=== PATIENT | male | born 1945 | race Caucasian/White ===

== ENCOUNTER 2018-07-06 15:12 | Emergency (ER) | payer MEDICARE ==
[2018-07-06] MEDS ORDERED: Ketorolac Tromethamine 60 MG/2 ML VIAL ONE (17:08)
--- NOTE | 2018-07-06 17:34 | RAD ---
LEFT FEMUR TWO VIEWS: 07/06/18 HISTORY: Left leg injury. FINDINGS: prominent degenerative changes of the hip and knee. Femoral shaft is intact. No acute fracture, dislo cation or aggressive osseous erosions. Calcification over the arterial structures. IMPRESSION: No acute osseous abnormalities are demonstrated. Atherosclerosis. POS: RUSS
--- NOTE | 2018-07-06 17:41 | RAD ---
RADIOGRAPH LEFT KNEE 4 VIEWS: 07/06/18 HISTORY: 72-year-old male status post acute trauma to left knee. FINDINGS: Visible only on one of the oblique views, there appears to be an obliquely vertical linear lucency of the central portion of the proximal tibial epiphysis and metaphysis, with minimal step-off at the me dial aspect of the medial joint compartment. This is not visible on the other views. There is suprapa tellar hematoma seen on the lateral view. There is moderate joint space narrowing, sclerosis, and mod erate to large osteophytosis at the medial compartment. Lateral compartment has preserved joint space , and mild to moderate osteophytosis. Moderate osteophytosis at the patellofemoral compartment. IMPRESSION: 1. Questionable nondisplaced fracture of central aspect of proximal tibia, with possible intra-a rticular extension. 2. Hemarthrosis. 3. Moderate to severe osteoarthrosis of the medial compartment. 4. Moderate osteoarthrosis of the patellofemoral compartment. 5. Recommend noncontrast CT of the knee for further evaluation. POS: RUSS
== END 2018-07-06 16:57 | disposition home or self-care (01) ==
LOC: ERS 15:12
DX: M17.12 Unilateral primary osteoarthritis, left knee (principal); I10 Essential (primary) hypertension; F17.210 Nicotine dependence, cigarettes, uncomplicated
CPT/HCPCS: 96372; J1885

== ENCOUNTER 2018-11-07 20:35 | Emergency (ER) | payer MEDICARE ==
[2018-11-07] MEDS ORDERED: Bacitracin Zinc 1 Packet ONE (22:36)
[2018-11-07] MEDS ORDERED: Adacel (T-DAP) 0.5 ML SYRINGE ONE (22:58)
[2018-11-07] MEDS ORDERED: cloNIDine 0.1 MG TAB ONE (23:15)
== END 2018-11-07 23:36 | disposition home or self-care (01) ==
LOC: ERS 20:35
DX: S50.312A Abrasion of left elbow, initial encounter (principal); S80.212A Abrasion, left knee, initial encounter; I10 Essential (primary) hypertension; Z79.899 Other long term (current) drug therapy; Z79.82 Long term (current) use of aspirin; W18.09XA Striking against other object with subsequent fall, initial encounter
CPT/HCPCS: 90471; 90715

== ENCOUNTER 2019-01-19 06:02 | Inpatient (IN) | payer MEDICARE ==
[2019-01-19] MEDS ORDERED: Scopolamine 1.5 mg/72 hour Patch ONE (06:32)
[2019-01-19] MEDS ORDERED: Midazolam HCl 2 mg/2 ml Vial ONE (06:32)
[2019-01-19] MEDS ORDERED: Fentanyl 100 MCG/2 ML VIAL ONE ×3 (06:32→09:54)
[2019-01-19 06:48] LABS: #Basophils 0.1 thou/uL (0.0-0.2); #Eosinphils 0.2 thou/uL (0.0-0.7); #Lymphocytes 1.3 thou/uL (1.20-3.40); #Monocytes 0.8 thou/uL (0.11-0.59); #Neutrophils 5.7 thou/uL (1.40-6.50); %Basophils 0.8 % (0.0-1.0); %Lymphocytes 16.5 % (21.0-51.0); %Monocytes 9.7 % (0.0-10.0); Hemoglobin 14.3 g/dL (14.0-18.0); Mean Corpuscular HGB CONC 31.8 g/dL (32.0-36.0); Mean Corpuscular Hemoglobin 32.6 pg (27.0-31.0); Platelet Count 159 thou/uL (130-400); RBC Distribution Width 13.6 % (11.5-14.5)
[2019-01-19] MEDS ORDERED: Albuterol Sulfate 1.25 MG/3 ML NEB ONE (06:49)
[2019-01-19 06:56] LABS: INR-International Normal Ratio 1.1
[2019-01-19 06:57] LABS: PTT 29.8 SEC (22.9-36.1)
[2019-01-19] MEDS ORDERED: Tranexamic Acid 1,000 MG/10 ML VIAL ONE ×2 (07:03→09:42)
[2019-01-19] MEDS ORDERED: Sodium Chloride 0.9% 100 ML ONE (07:03)
[2019-01-19] MEDS ORDERED: Vancomycin HCl 1.5 GM in Sodium Chloride 0.9% 250 ML 300 ML IVPB SCH (07:15)
[2019-01-19 07:21] LABS: Anion Gap 15 mmol/L (10-20); BUN (Urea Nitrogen) 14 mg/dL (8.4-25.7); Calc. Creatinine Clearance 0 mL/min (70-130); Calcium 8.8 mg/dL (7.8-10.44); Carbon Dioxide 23 mmol/L (23-31); Chloride 110 mmol/L (98-107); Estimated GFR-MDRD Greater than 90; Glucose 108 mg/dL (83-110); Potassium 3.8 mmol/L (3.5-5.1); Sodium 144 mmol/L (136-145)
[2019-01-19] MEDS ORDERED: Bupivacaine HCl 0.5%/Epinephrine 1:200,000/PF 30 ml Vial ONE (07:35)
[2019-01-19] MEDS ORDERED: Ondansetron HCl/PF 4 MG/2 ML Vial IVP PRN (09:00)
[2019-01-19] MEDS ORDERED: Promethazine HCl 25 MG/ML VIAL IM PRN (09:00)
[2019-01-19] MEDS ORDERED: Promethazine HCl 25 MG/ML VIAL SLOW IVP PRN (09:00)
[2019-01-19] MEDS ORDERED: HYDROcodone/Acetaminophen 10/325 mg Tablet PO PRN (09:12)
[2019-01-19] MEDS ORDERED: Acetaminophen 500 MG TAB PO PRN (09:15)
--- NOTE | 2019-01-19 11:42 | OP ---
DATE OF PROCEDURE: 01/19/2019 PREOPERATIVE DIAGNOSIS: Failed left total shoulder. POSTOPERATIVE DIAGNOSIS: Failed left total shoulder. PROCEDURE: Left revision total shoulder arthroplasty. MANAGER SMALL BUSINESS: Gonzalo. BLOOD LOSS: 100. SPECIMEN: None. COMPLICATION: None. IMPLANTS USED: [employer] 29-mm revision baseplate with a 30 mm post, 35 and 29 locking screw, 7B long stem with a +6 high offset tray and a 9-mm poly. DESCRIPTION OF PROCEDURE: The patient was taken to the operating room for general anesthesia. He received Ancef and vancomycin preoperatively. With the patient in beach chair position, left arm was prepped and draped in usual sterile fashion, opened the old incision. This was secured down to the deltopectoral interval, which was open with some difficulty due to extensive scarring. I did develop the interval to develop the subdeltoid recess. Subscapularis was incised. Humeral head was dislocated. Careful exposure around the humeral head and removed the humeral implant. I broached the humeral implant to size 7 and this had good rotational stability. The glenoid was exposed. I removed the polyethylene glenoid, drilled the center hole. I tried to create some inferior tilt to the glenoid, reamed with the one-step reamer and inserted the baseplate with excellent bicortical fit. I placed a locking screw as described and placed a standard . Screw was tightened without difficulty. Trialed and used implants as described above. The permanent implants were packed into place. Irrigation was performed. Deltopectoral was closed with #2 Vicryl. Subcu closed with 2-0 Vicryl. Skin was closed with chino. Sterile dressings applied. Job ID: [id number]
[2019-01-19] MEDS ORDERED: Rocuronium Bromide 10 MG/ML (10ML VIAL) ONE (14:29)
[2019-01-19] MEDS ORDERED: Lidocaine 1% PF 5 ML VIAL ONE (14:29)
[2019-01-19] MEDS ORDERED: Ondansetron PF 4 MG/2 ML Vial ONE (14:29)
[2019-01-19] MEDS ORDERED: PROPOFOL 200 MG/20 ML VIAL ONE (14:29)
[2019-01-19] MEDS ORDERED: Ketorolac Tromethamine 30 MG/ML VIAL ONE (14:29)
[2019-01-19] MEDS ORDERED: Glycopyrrolate 0.2 MG/ML 5 ML SYRINGE ONE (14:29)
[2019-01-19 15:30] VITALS: BMI 22.1
[2019-01-19] MEDS: CEFAZOLIN 2 GM in Premix Bag 1 BAG IVPB SCH ×2 (16:39→23:16)
[2019-01-19] MEDS: Dextrose 5 %-0.45 % NaCl 1,000 ML IV SCH (16:57)
[2019-01-19] MEDS: Lisinopril 20 MG TAB PO SCH (20:48)
[2019-01-19] MEDS: Atenolol 50 MG TAB PO SCH (20:48)
[2019-01-19] MEDS: HYDROcodone/Acetaminophen 10/325 mg Tablet PO PRN (20:49)
[2019-01-20] MEDS: Dextrose 5 %-0.45 % NaCl 1,000 ML IV SCH ×3 (01:30→22:15)
--- NOTE | 2019-01-20 07:00 | EKG ---
Test Reason : PREOP Blood Pressure : / mmHG Vent. Rate : 056 BPM Atrial Rate : 056 BPM P-R Int : 148 ms QRS Dur : 142 ms QT Int : 494 ms P-R-T Axes : -23 -71 -29 degrees QTc Int : 476 ms Sinus bradycardia Right bundle branch block Left anterior fascicular block Bifascicular block Abnormal ECG When compared with ECG of 04-FEB-2016 23:12, Vent. rate has decreased BY 29 BPM T wave inversion more evident in Inferior leads Confirmed by FERNANDO DONG ([id number]) on 01/20/2019 6:59:44 AM Referred By: AGUEDA Confirmed By:FERNANDO DONG
[2019-01-20] MEDS: Atenolol 50 MG TAB PO SCH ×2 (09:25→20:43)
[2019-01-20] MEDS: Lisinopril 20 MG TAB PO SCH ×2 (09:25→20:44)
[2019-01-20] MEDS: Multivit, Therapeutic 1 TAB PO SCH (09:25)
[2019-01-20] MEDS: Enoxaparin Sodium 30 MG/0.3 ML SYRINGE SC SCH (09:26)
[2019-01-20] MEDS: Aspirin 81 mg Enteric Coated Tablet PO SCH (09:26)
[2019-01-20 20:16] LABS: #Eosinphils 0.1 thou/uL (0.0-0.7); #Lymphocytes 1.3 thou/uL (1.20-3.40); #Monocytes 1.5 thou/uL (0.11-0.59); #Neutrophils 11.3 thou/uL (1.40-6.50); %Basophils 0.2 % (0.0-1.0); %Eosinophils 0.5 % (0.0-10.0); %Monocytes 10.7 % (0.0-10.0); %Neutrophils 79.6 % (42.0-75.0); Hemoglobin 13.2 g/dL (14.0-18.0); Mean Corpuscular HGB CONC 32.4 g/dL (32.0-36.0); Mean Corpuscular Hemoglobin 33.6 pg (27.0-31.0); Mean Platelet Volume 9.5 fL (7.4-10.4); Platelet Count 147 thou/uL (130-400); RBC Distribution Width 13.5 % (11.5-14.5); Red Blood Cell (RBC) Count 3.92 mill/uL (4.70-6.10); White Blood Cell (WBC) Count 14.2 thou/uL (4.8-10.8)
[2019-01-20 20:38] LABS: Anion Gap 11 mmol/L (10-20); BUN (Urea Nitrogen) 14 mg/dL (8.4-25.7); Calc. Creatinine Clearance 92 mL/min (70-130); Calcium 8.9 mg/dL (7.8-10.44); Carbon Dioxide 27 mmol/L (23-31); Chloride 106 mmol/L (98-107); Estimated GFR-MDRD Greater than 90; Glucose 155 mg/dL (83-110); Potassium 3.5 mmol/L (3.5-5.1); Sodium 140 mmol/L (136-145)
[2019-01-20] MEDS: HYDROcodone/Acetaminophen 10/325 mg Tablet PO PRN (20:44)
[2019-01-21] MEDS: Dextrose 5 %-0.45 % NaCl 1,000 ML IV SCH
[2019-01-21 05:07] LABS: #Eosinphils 0.2 thou/uL (0.0-0.7); #Lymphocytes 1.6 thou/uL (1.20-3.40); #Monocytes 1.4 thou/uL (0.11-0.59); #Neutrophils 6.8 thou/uL (1.40-6.50); %Basophils 0.5 % (0.0-1.0); %Eosinophils 1.6 % (0.0-10.0); %Lymphocytes 16.2 % (21.0-51.0); %Monocytes 13.6 % (0.0-10.0); %Neutrophils 68.2 % (42.0-75.0); Hemoglobin 11.5 g/dL (14.0-18.0); Mean Corpuscular HGB CONC 32.7 g/dL (32.0-36.0); Mean Corpuscular Hemoglobin 33.9 pg (27.0-31.0); Mean Platelet Volume 9.6 fL (7.4-10.4); Platelet Count 126 thou/uL (130-400); RBC Distribution Width 13.4 % (11.5-14.5); Red Blood Cell (RBC) Count 3.39 mill/uL (4.70-6.10)
[2019-01-21 05:29] LABS: Anion Gap 10 mmol/L (10-20); BUN (Urea Nitrogen) 13 mg/dL (8.4-25.7); Calc. Creatinine Clearance 112 mL/min (70-130); Calcium 8.3 mg/dL (7.8-10.44); Carbon Dioxide 25 mmol/L (23-31); Chloride 108 mmol/L (98-107); Estimated GFR-MDRD Greater than 90; Glucose 115 mg/dL (83-110); Potassium 3.6 mmol/L (3.5-5.1); Sodium 139 mmol/L (136-145)
[2019-01-21] MEDS: Sodium Chloride 0.9% 1,000 ML IV SCH ×2 (06:18→18:23)
[2019-01-21] MEDS: Multivit, Therapeutic 1 TAB PO SCH (09:39)
[2019-01-21] MEDS: Lisinopril 20 MG TAB PO SCH ×2 (09:39→20:54)
[2019-01-21] MEDS: Aspirin 81 mg Enteric Coated Tablet PO SCH (09:39)
[2019-01-21] MEDS: Atenolol 50 MG TAB PO SCH ×2 (09:39→20:54)
[2019-01-21] MEDS: Enoxaparin Sodium 30 MG/0.3 ML SYRINGE SC SCH (09:39)
--- NOTE | 2019-01-21 10:00 | PDOC.PN ---
- Subjective Encounter Start Date: 01/21/19 Encounter Start Time: 08:40 -: old records requested/rev consulted for medical management this morning pt was doing OK. he has pain in left shoulder, no fever, no chest pain - Objective Resuscitation Status - Order Detail: 01/21/19 06:59 Resuscitation Status Routine Resuscitation Status: FULL: Full Resuscitation MAR Reviewed: Yes Vital Signs & Weight: Vital Signs (12 hours) Temp Pulse Resp BP BP Pulse Ox 01/21/19 09:39 59 L 150/73 H 01/21/19 07:12 98.0 F 59 L 18 150/73 H 93 L 01/21/19 04:00 98.1 F 60 20 134/75 93 L 01/21/19 00:00 98.3 F 55 L 20 123/67 92 L Weight Weight 163 lb 6.4 oz I&O: 01/20/19 01/21/19 01/22/19 06:59 06:59 06:59 Intake Total 920 2490 Output Total 900 Balance 920 1590 Result Diagrams: 01/21/19 04:37 01/21/19 04:37 EKG Reviewed by me: Yes (lahb, RBBB) Phys Exam - Physical Examination Constitutional: NAD HEENT: moist MMs, sclera anicteric Neck: no JVD, supple Respiratory: no wheezing, no rales, no rhonchi reduced air entry Cardiovascular: RRR, no significant murmur, no rub Gastrointestinal: soft, non-tender, no distention, positive bowel sounds right BKA Neurological: non-focal, normal sensation Lymphatic: no nodes Psychiatric: normal affect Skin: no rash, normal turgor Dx/Plan (1) Acute urinary retention Code(s): R33.8 - OTHER RETENTION OF URINE Status: Acute (2) Status post total shoulder arthroplasty Code(s): Z96.619 - PRESENCE OF UNSPECIFIED ARTIFICIAL SHOULDER JOINT Status: Acute Qualifiers: Laterality: left Qualified Code(s): Z96.612 - Presence of left artificial shoulder joint (3) Hypertension Code(s): I10 - ESSENTIAL (PRIMARY) HYPERTENSION Status: Chronic (4) Macrocytic anemia Code(s): D53.9 - NUTRITIONAL ANEMIA, UNSPECIFIED Status: Chronic - Plan cont current plan of care * home medication reconciled * pain control * will do voiding trial before discharge * medication reviewed as below * symptomatic treatment * add folic acid and vitamin B12. Review of Systems - Review of Systems ENT: negative: Ear Pain, Ear Discharge, Nose Pain, Nose Discharge, Nose Congestion, Mouth Pain, Mouth Swelling, Throat Pain, Throat Swelling, Other Respiratory: negative: Cough, Dry, Shortness of Breath, Hemoptysis, SOB with Excertion, Pleuritic Pain, Sputum, Wheezing Cardiovascular: negative: chest pain, palpitations, orthopnea, paroxysmal nocturnal dyspnea, edema, light headedness, other Gastrointestinal: negative: Nausea, Vomiting, Abdominal Pain, Diarrhea, Constipation, Melena, Hematochezia, Other Genitourinary: Retention. negative: Dysuria, Frequency, Incontinence, Hematuria , Other Musculoskeletal: Shoulder Pain. negative: Neck Pain, Arm Pain, Back Pain, Hand Pain, Leg Pain, Foot Pain, Other - Medications/Allergies Allergies/Adverse Reactions: Allergies Allergy/AdvReac Type Severity Reaction Status Date / Time adhesive Allergy Verified 01/19/19 15:23 iodine Allergy Verified 01/19/19 15:23 Penicillins Allergy Hives Verified 01/19/19 15:23 povidone-iodine Allergy Verified 01/19/19 15:23 [From Betadine] soap [From Betadine] Allergy Verified 01/19/19 15:23 Medications: Current Medications Acetaminophen (Tylenol) 1,000 mg PO Q4H PRN PRN Reason: Pain Hydrocodone Bitart/Acetaminophen ([place] 10/325) 1 tab PO Q4H PRN PRN Reason: Moderate Pain (4-6) Hydrocodone Bitart/Acetaminophen ([place] 10/325) 2 tab PO Q4H PRN PRN Reason: Severe Pain (7-10) Last Admin: 01/20/19 20:44 Dose: 2 tab Aspirin (Ecotrin) 81 mg PO DAILY [facility] Last Admin: 01/21/19 09:39 Dose: 81 mg Atenolol (Tenormin) 50 mg PO BID [facility] Last Admin: 01/21/19 09:39 Dose: 50 mg Enoxaparin Sodium (Lovenox) 30 mg SC 0900 [facility] Last Admin: 01/21/19 09:39 Dose: 30 mg Sodium Chloride (Normal Saline 0.9%) 1,000 mls @ 100 mls/hr IV .Q10H [facility] Stop: 01/21/19 18:00 Last Admin: 01/21/19 06:18 Dose: 1,000 mls Lisinopril (Zestril) 20 mg PO BID [facility] Last Admin: 01/21/19 09:39 Dose: 20 mg Multivitamins (Theragran) 1 tab PO DAILY [facility] Last Admin: 01/21/19 09:39 Dose: 1 tab Sodium Chloride (Flush - Normal Saline) 10 ml IVF PRN PRN PRN Reason: Saline Flush
[2019-01-21] MEDS ORDERED: Ondansetron PF 4 MG/2 ML Vial IVP PRN (10:01)
[2019-01-21] MEDS ORDERED: Loperamide HCl 2 MG CAP PO PRN (10:01)
[2019-01-21] MEDS ORDERED: Ondansetron ODT 4 MG TAB SL PRN (10:01)
[2019-01-21] MEDS ORDERED: Diabetic Tussin 200 MG/10 ML UDCUP PO PRN (10:01)
[2019-01-21] MEDS ORDERED: Eucerin (Mineral Oil/Petrolatum,White) 30 gm Jar TOP PRN (10:01)
[2019-01-21] MEDS ORDERED: Loratadine 10 MG TAB PO PRN (10:01)
[2019-01-21] MEDS ORDERED: Bisacodyl 5 MG TAB PO PRN (10:01)
[2019-01-21] MEDS ORDERED: hydrALAZINE 20 MG/ML VIAL SLOW IVP PRN (10:01)
[2019-01-21] MEDS ORDERED: Sodium Chloride 0.65% Nasal 44 ML BOT EA NARE PRN (10:01)
[2019-01-21] MEDS ORDERED: Cepastat Lozenges 1 LOZ PO PRN (10:01)
[2019-01-21] MEDS ORDERED: Senokot S 8.6-50 MG TAB PO PRN (10:01)
[2019-01-21] MEDS ORDERED: traMADol HCl 50 MG TAB PO PRN (12:09)
[2019-01-21] MEDS: Ibuprofen 600 MG TAB PO PRN ×2 (12:52→20:55)
[2019-01-21] MEDS: Zolpidem Tartrate 5 MG TAB PO SCH (20:55)
[2019-01-22 05:56] LABS: #Eosinphils 0.2 thou/uL (0.0-0.7); #Lymphocytes 1.1 thou/uL (1.20-3.40); #Monocytes 0.9 thou/uL (0.11-0.59); #Neutrophils 5.2 thou/uL (1.40-6.50); %Basophils 0.5 % (0.0-1.0); %Eosinophils 2.5 % (0.0-10.0); %Lymphocytes 15.2 % (21.0-51.0); %Monocytes 12.4 % (0.0-10.0); %Neutrophils 69.4 % (42.0-75.0); Mean Corpuscular HGB CONC 31.5 g/dL (32.0-36.0); Mean Corpuscular Hemoglobin 32.6 pg (27.0-31.0); Mean Platelet Volume 9.7 fL (7.4-10.4); Platelet Count 134 thou/uL (130-400); RBC Distribution Width 13.4 % (11.5-14.5); Red Blood Cell (RBC) Count 3.68 mill/uL (4.70-6.10); White Blood Cell (WBC) Count 7.4 thou/uL (4.8-10.8)
[2019-01-22 06:18] LABS: Anion Gap 11 mmol/L (10-20); BUN (Urea Nitrogen) 10 mg/dL (8.4-25.7); Calc. Creatinine Clearance 117 mL/min (70-130); Calcium 8.2 mg/dL (7.8-10.44); Carbon Dioxide 22 mmol/L (23-31); Chloride 111 mmol/L (98-107); Estimated GFR-MDRD Greater than 90; Glucose 105 mg/dL (83-110); Potassium 3.5 mmol/L (3.5-5.1); Sodium 140 mmol/L (136-145)
[2019-01-22] MEDS: Aspirin 81 mg Enteric Coated Tablet PO SCH (08:07)
[2019-01-22] MEDS: Multivit, Therapeutic 1 TAB PO SCH (08:07)
[2019-01-22] MEDS: Lisinopril 20 MG TAB PO SCH ×2 (08:07→20:25)
[2019-01-22] MEDS: Cyanocobalamin (Vitamin B-12) 1,000 MCG TAB PO SCH (08:07)
[2019-01-22] MEDS: Folic Acid 1 MG TAB PO SCH (08:08)
[2019-01-22] MEDS: Amlodipine 5 MG TAB PO SCH (08:08)
[2019-01-22] MEDS: Enoxaparin Sodium 30 MG/0.3 ML SYRINGE SC SCH (08:08)
[2019-01-22] MEDS: Tamsulosin HCl 0.4 MG CAP PO SCH (08:08)
[2019-01-22] MEDS: Atenolol 50 MG TAB PO SCH (08:20)
--- NOTE | 2019-01-22 09:03 | PDOC.PN ---
- Subjective Encounter Start Date: 01/22/19 Encounter Start Time: 07:00 pt's heart rate is low and he has hypertension, otherwise he is doing ok, no new problem Patient seen and examined. No new complaints. No overnight events - Objective Resuscitation Status - Order Detail: 01/21/19 06:59 Resuscitation Status Routine Resuscitation Status: FULL: Full Resuscitation MAR Reviewed: Yes Vital Signs & Weight: Vital Signs (12 hours) Temp Pulse Resp BP BP Pulse Ox 01/22/19 08:20 58 L 174/80 H 01/22/19 08:08 58 L 174/80 H 01/22/19 08:07 174/80 H 01/22/19 07:30 97.9 F 58 L 20 185/81 H 95 01/22/19 00:00 98.9 F 62 18 167/81 H 92 L Weight Weight 163 lb 6.4 oz I&O: 01/21/19 01/22/19 01/23/19 06:59 06:59 06:59 Intake Total 2490 2900 Output Total 900 1300 Balance 1590 1600 Result Diagrams: 01/22/19 05:30 01/22/19 05:30 Phys Exam - Physical Examination Constitutional: NAD HEENT: PERRLA, moist MMs, sclera anicteric Neck: no JVD, supple Respiratory: no wheezing, no rales, no rhonchi Cardiovascular: RRR, no significant murmur, no rub Gastrointestinal: soft, non-tender, no distention, positive bowel sounds Musculoskeletal: no edema, pulses present right BKA, left shoulder with dressing Neurological: non-focal Lymphatic: no nodes Psychiatric: normal affect Skin: no rash, normal turgor Dx/Plan (1) Acute urinary retention Code(s): R33.8 - OTHER RETENTION OF URINE Status: Acute (2) Status post total shoulder arthroplasty Code(s): Z96.619 - PRESENCE OF UNSPECIFIED ARTIFICIAL SHOULDER JOINT Status: Acute Qualifiers: Laterality: left Qualified Code(s): Z96.612 - Presence of left artificial shoulder joint (3) Hypertension Code(s): I10 - ESSENTIAL (PRIMARY) HYPERTENSION Status: Chronic (4) Macrocytic anemia Code(s): D53.9 - NUTRITIONAL ANEMIA, UNSPECIFIED Status: Chronic - Plan 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 Review of Systems - Review of Systems ENT: negative: Ear Pain, Ear Discharge, Nose Pain, Nose Discharge, Nose Congestion, Mouth Pain, Mouth Swelling, Throat Pain, Throat Swelling, Other Respiratory: negative: Cough, Dry, Shortness of Breath, Hemoptysis, SOB with Excertion, Pleuritic Pain, Sputum, Wheezing Cardiovascular: negative: chest pain, palpitations, orthopnea, paroxysmal nocturnal dyspnea, edema, light headedness, other Gastrointestinal: negative: Nausea, Vomiting, Abdominal Pain, Diarrhea, Constipation, Melena, Hematochezia, Other Genitourinary: negative: Dysuria, Frequency, Incontinence, Hematuria, Retention , Other Musculoskeletal: Shoulder Pain. negative: Neck Pain, Arm Pain, Back Pain, Hand Pain, Leg Pain, Foot Pain, Other Other: not reliable due to his level of cognitive status - Medications/Allergies Allergies/Adverse Reactions: Allergies Allergy/AdvReac Type Severity Reaction Status Date / Time adhesive Allergy Verified 01/19/19 15:23 iodine Allergy Verified 01/19/19 15:23 Penicillins Allergy Hives Verified 01/19/19 15:23 povidone-iodine Allergy Verified 01/19/19 15:23 [From Betadine] soap [From Betadine] Allergy Verified 01/19/19 15:23 Medications: Current Medications Acetaminophen (Tylenol) 1,000 mg PO Q4H PRN PRN Reason: Pain Albuterol/Ipratropium (Duoneb) 3 ml NEB [id number] PRN PRN Reason: SOB &/or Wheezing Amlodipine Besylate (Norvasc) 5 mg PO DAILY [facility] Last Admin: 01/22/19 08:08 Dose: 5 mg Aspirin (Ecotrin) 81 mg PO DAILY [facility] Last Admin: 01/22/19 08:07 Dose: 81 mg Atenolol (Tenormin) 50 mg PO DAILY [facility] Bisacodyl (Dulcolax) 10 mg PO DAILYPRN PRN PRN Reason: Constipation Cyanocobalamin (Vitamin B-12) 1,000 mcg PO DAILY [facility] Last Admin: 01/22/19 08:07 Dose: 1,000 mcg Enoxaparin Sodium (Lovenox) 30 mg SC 0900 [facility] Last Admin: 01/22/19 08:08 Dose: 30 mg Folic Acid (Folvite) 1 mg PO DAILY [facility] Last Admin: 01/22/19 08:08 Dose: 1 mg Guaifenesin (Robitussin Sf) 200 mg PO Q4H PRN PRN Reason: Cough Hydralazine HCl (Apresoline) 10 mg SLOW IVP Q4H PRN PRN Reason: SBP > 180 and HR < 70 Ibuprofen (Motrin) 600 mg PO Q6H PRN PRN Reason: Pain Last Admin: 01/21/19 20:55 Dose: 600 mg Lisinopril (Zestril) 20 mg PO BID [facility] Last Admin: 01/22/19 08:07 Dose: 20 mg Loperamide HCl (Imodium) 2 mg PO PRN PRN PRN Reason: Diarrhea/Loose Stools Loratadine (Claritin) 10 mg PO DAILYPRN PRN PRN Reason: Sinus Symptoms Mineral Oil/White Petrolatum (Eucerin Cream) 0 gm TOP BIDPRN PRN PRN Reason: Dry Skin Multivitamins (Theragran) 1 tab PO DAILY [facility] Last Admin: 01/22/19 08:07 Dose: 1 tab Ondansetron HCl (Zofran Odt) 4 mg SL Q6H PRN PRN Reason: Nausea/Vomiting Ondansetron HCl (Zofran) 4 mg IVP Q6H PRN PRN Reason: Nausea/Vomiting Senna/Docusate Sodium (Senokot S) 2 tab PO BID PRN PRN Reason: Constipation Sodium Chloride (Flush - Normal Saline) 10 ml IVF PRN PRN PRN Reason: Saline Flush Sodium Chloride ([place] Nasal [place] 0.65%) 0 ml EA NARE QIDPRN PRN PRN Reason: Nasal Congestion Tamsulosin HCl (Flomax) 0.4 mg PO DAILY [facility] Last Admin: 01/22/19 08:08 Dose: 0.4 mg Throat Lozenges (Cepastat Lozenges) 1 meg PO Q2H PRN PRN Reason: Sore Throat Tramadol HCl (Ultram) 50 mg PO Q4H PRN PRN Reason: Pain 4-6 Zolpidem Tartrate (Ambien) 5 mg PO [facility] Stop: 01/24/19 23:00 Last Admin: 01/21/19 20:55 Dose: 5 mg
[2019-01-22] MEDS: Calcium Carbonate 500 MG ChewTAB PO PRN ×2 (17:31→22:48)
[2019-01-22] MEDS: Zolpidem Tartrate 5 MG TAB PO SCH (20:29)
[2019-01-23] MEDS: Lisinopril 20 MG TAB PO SCH (08:33)
[2019-01-23] MEDS: Folic Acid 1 MG TAB PO SCH (08:34)
[2019-01-23] MEDS: Tamsulosin HCl 0.4 MG CAP PO SCH (08:34)
[2019-01-23] MEDS: Cyanocobalamin (Vitamin B-12) 1,000 MCG TAB PO SCH (08:34)
[2019-01-23] MEDS: Enoxaparin Sodium 30 MG/0.3 ML SYRINGE SC SCH (08:34)
[2019-01-23] MEDS: Amlodipine 5 MG TAB PO SCH (08:34)
[2019-01-23] MEDS: Aspirin 81 mg Enteric Coated Tablet PO SCH (08:34)
[2019-01-23] MEDS: Multivit, Therapeutic 1 TAB PO SCH (08:34)
[2019-01-23] MEDS ORDERED: Atenolol 50 MG TAB PO SCH (09:00)
--- NOTE | 2019-01-23 10:21 | PDOC.PN ---
- Subjective Encounter Start Date: 01/23/19 Encounter Start Time: 08:00 Patient seen and examined. No new complaints. No overnight events - Objective Resuscitation Status - Order Detail: 01/21/19 06:59 Resuscitation Status Routine Resuscitation Status: FULL: Full Resuscitation MAR Reviewed: Yes Vital Signs & Weight: Vital Signs (12 hours) Temp Pulse Resp BP Pulse Ox 01/23/19 07:15 98.5 F 107 H 18 153/80 H 94 L 01/23/19 04:20 98.7 F 79 20 173/79 H 94 L 01/23/19 00:00 98.9 F 79 20 173/81 H 94 L Weight Weight 163 lb 6.4 oz I&O: 01/22/19 01/23/19 01/24/19 06:59 06:59 06:59 Intake Total 2900 1530 Output Total 1300 1000 Balance 1600 530 Result Diagrams: 01/22/19 05:30 01/22/19 05:30 Phys Exam - Physical Examination Constitutional: NAD HEENT: PERRLA, moist MMs, sclera anicteric Neck: no JVD, supple Respiratory: no wheezing, no rales, no rhonchi Cardiovascular: RRR, no significant murmur, no rub Gastrointestinal: soft, non-tender, no distention, positive bowel sounds right BKA Neurological: non-focal, normal sensation Lymphatic: no nodes Psychiatric: normal affect, A&O x 3 Skin: no rash, normal turgor Dx/Plan (1) Acute urinary retention Code(s): R33.8 - OTHER RETENTION OF URINE Status: Acute (2) Status post total shoulder arthroplasty Code(s): Z96.619 - PRESENCE OF UNSPECIFIED ARTIFICIAL SHOULDER JOINT Status: Acute Qualifiers: Laterality: left Qualified Code(s): Z96.612 - Presence of left artificial shoulder joint (3) Hypertension Code(s): I10 - ESSENTIAL (PRIMARY) HYPERTENSION Status: Chronic (4) Macrocytic anemia Code(s): D53.9 - NUTRITIONAL ANEMIA, UNSPECIFIED Status: Chronic - 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 Review of Systems - Review of Systems ENT: negative: Ear Pain, Ear Discharge, Nose Pain, Nose Discharge, Nose Congestion, Mouth Pain, Mouth Swelling, Throat Pain, Throat Swelling, Other Respiratory: negative: Cough, Dry, Shortness of Breath, Hemoptysis, SOB with Excertion, Pleuritic Pain, Sputum, Wheezing Cardiovascular: negative: chest pain, palpitations, orthopnea, paroxysmal nocturnal dyspnea, edema, light headedness, other Gastrointestinal: negative: Nausea, Vomiting, Abdominal Pain, Diarrhea, Constipation, Melena, Hematochezia, Other Genitourinary: negative: Dysuria, Frequency, Incontinence, Hematuria, Retention , Other Musculoskeletal: negative: Neck Pain, Shoulder Pain, Arm Pain, Back Pain, Hand Pain, Leg Pain, Foot Pain, Other - Medications/Allergies Allergies/Adverse Reactions: Allergies Allergy/AdvReac Type Severity Reaction Status Date / Time adhesive Allergy Verified 01/19/19 15:23 iodine Allergy Verified 01/19/19 15:23 Penicillins Allergy Hives Verified 01/19/19 15:23 povidone-iodine Allergy Verified 01/19/19 15:23 [From Betadine] soap [From Betadine] Allergy Verified 01/19/19 15:23 Medications: Current Medications Acetaminophen (Tylenol) 1,000 mg PO Q4H PRN PRN Reason: Pain Albuterol/Ipratropium (Duoneb) 3 ml NEB [id number] PRN PRN Reason: SOB &/or Wheezing Amlodipine Besylate (Norvasc) 5 mg PO DAILY [facility] Last Admin: 01/23/19 08:34 Dose: 5 mg Aspirin (Ecotrin) 81 mg PO DAILY [facility] Last Admin: 01/23/19 08:34 Dose: 81 mg Atenolol (Tenormin) 50 mg PO DAILY [facility] Last Admin: 01/23/19 08:34 Dose: 50 mg Bisacodyl (Dulcolax) 10 mg PO DAILYPRN PRN PRN Reason: Constipation Calcium Carbonate (Tums) 500 mg PO Q6H PRN PRN Reason: .INDIGESTION Last Admin: 01/22/19 22:48 Dose: 500 mg Cyanocobalamin (Vitamin B-12) 1,000 mcg PO DAILY [facility] Last Admin: 01/23/19 08:34 Dose: 1,000 mcg Enoxaparin Sodium (Lovenox) 30 mg SC 0900 [facility] Last Admin: 01/23/19 08:34 Dose: 30 mg Folic Acid (Folvite) 1 mg PO DAILY [facility] Last Admin: 01/23/19 08:34 Dose: 1 mg Guaifenesin (Robitussin Sf) 200 mg PO Q4H PRN PRN Reason: Cough Hydralazine HCl (Apresoline) 10 mg SLOW IVP Q4H PRN PRN Reason: SBP > 180 and HR < 70 Ibuprofen (Motrin) 600 mg PO Q6H PRN PRN Reason: Pain Last Admin: 01/21/19 20:55 Dose: 600 mg Lisinopril (Zestril) 20 mg PO BID [facility] Last Admin: 01/23/19 08:33 Dose: 20 mg Loperamide HCl (Imodium) 2 mg PO PRN PRN PRN Reason: Diarrhea/Loose Stools Loratadine (Claritin) 10 mg PO DAILYPRN PRN PRN Reason: Sinus Symptoms Mineral Oil/White Petrolatum (Eucerin Cream) 0 gm TOP BIDPRN PRN PRN Reason: Dry Skin Multivitamins (Theragran) 1 tab PO DAILY [facility] Last Admin: 01/23/19 08:34 Dose: 1 tab Ondansetron HCl (Zofran Odt) 4 mg SL Q6H PRN PRN Reason: Nausea/Vomiting Ondansetron HCl (Zofran) 4 mg IVP Q6H PRN PRN Reason: Nausea/Vomiting Last Admin: 01/23/19 04:23 Dose: 4 mg Senna/Docusate Sodium (Senokot S) 2 tab PO BID PRN PRN Reason: Constipation Sodium Chloride (Flush - Normal Saline) 10 ml IVF PRN PRN PRN Reason: Saline Flush Sodium Chloride ([place] Nasal [place] 0.65%) 0 ml EA NARE QIDPRN PRN PRN Reason: Nasal Congestion Tamsulosin HCl (Flomax) 0.4 mg PO DAILY [facility] Last Admin: 01/23/19 08:34 Dose: 0.4 mg Throat Lozenges (Cepastat Lozenges) 1 meg PO Q2H PRN PRN Reason: Sore Throat Tramadol HCl (Ultram) 50 mg PO Q4H PRN PRN Reason: Pain 4-6 Zolpidem Tartrate (Ambien) 5 mg PO [facility] Stop: 01/24/19 23:00 Last Admin: 01/22/19 20:29 Dose: 5 mg
[2019-01-23 12:01] VITALS: BP 168/86; TEMP 98.4
--- NOTE | 2019-01-24 09:29 | DIS ---
DATE OF ADMISSION: 01/19/2019 DATE OF DISCHARGE: 01/23/2019 PRIMARY CARE PHYSICIAN: Judy Yousif, nurse practitioner. DISCHARGE DISPOSITION: Senior Care Unit. PRIMARY DISCHARGE DIAGNOSES: 1. Status post total shoulder arthroplasty. 2. Acute urinary retention due to benign enlargement of prostate. SECONDARY DISCHARGE DIAGNOSES: Macrocytic anemia, hypertension, right below-knee amputation, and history of alcoholic cirrhosis. PRIMARY PROCEDURE/OPERATION: Left revision total shoulder arthroplasty. SIGNIFICANT LABORATORY DATA: WBC 7.4, hemoglobin 12.0, platelet 134. INR 1.1. Sodium 140 and creatinine 0.57. DISCHARGE MEDICATIONS: 1. Tylenol 1 g q.6 hourly p.r.n. 2. Aspirin 81 mg daily. 3. Atenolol 50 mg b.i.d. 4. Lisinopril 20 mg b.i.d. 5. Multivitamin 1 tablet p.o. daily. 6. Flomax 0.4 mg p.o. daily. 7. Tramadol 50 mg q.4 hourly p.r.n. CONTRAINDICATION: None. CODE STATUS: Full code. INPATIENT [facility]GAL: Dr. Pena was primary. [facility] Team was consulted for medical management. TEST RESULT PENDING ON DISCHARGE: None. ALLERGIES: PENICILLIN AND IODINE. DISCHARGE PLAN: Posthospital, the patient will follow up with Dr. Pena on February 08, 2019 at 2:15 p.m. The patient will follow up make appointment with Dr. Wilson and primary care physician. HOSPITAL COURSE: A 73-year-old male, who was admitted by Dr. Pena for shoulder replacement, which was done on January 19, 2019. After surgery, [facility] was consulted for medical management. While in the hospital, his hospital course was complicated by acute urinary retention, which we suspected from benign enlargement of prostate. Flomax was initiated. While in hospital, we continued all his home medication. Because of his physical deconditioning, the patient required placement. With help of telephonic nurse case manager, placement was arranged. The patient did not have any successful voiding trial before discharge and that is why he required Goldman catheter in. He will follow up with Urology as an outpatient basis. The patient was seen and examined on the day of discharge. Please see my progress note from that day. Job ID: [id number]
== END 2019-01-23 14:51 | DRG 483 ==
LOC: SURG A 06:02 → SJJU 13:48 → SURG A 01-21 18:10
PROVIDERS: ADMIT Orthopaedic Surgery; ATTEND Orthopaedic Surgery
PROC: 0RRK0JZ Replacement of Left Shoulder Joint with Synthetic Substitute, Open Approach (ICD-10-PCS; principal; 2019-01-19)
PROC: 0RPK0JZ Removal of Synthetic Substitute from Left Shoulder Joint, Open Approach (ICD-10-PCS; 2019-01-19)
DX: T84.111A Breakdown (mechanical) of internal fixation device of left humerus, initial encounter (principal); Y83.8 Other surgical procedures as the cause of abnormal reaction of the patient, or of later complication, without mention of misadventure at the time of the procedure; N40.1 Benign prostatic hyperplasia with lower urinary tract symptoms; R33.8 Other retention of urine; I10 Essential (primary) hypertension; D53.9 Nutritional anemia, unspecified; Z96.612 Presence of left artificial shoulder joint; Z89.611 Acquired absence of right leg above knee; Z88.0 Allergy status to penicillin; Z88.8 Allergy status to other drugs, medicaments and biological substances; Z87.19 Personal history of other diseases of the digestive system
CPT/HCPCS: 36415; 80048; 85025; 85610; 85730; 93005; 93010; C1713; J0131; J0670; J1650; J1885; J2001; J2250; J2405; J2704; J3010; J3370; J7050

== ENCOUNTER 2019-01-23 23:09 | Inpatient (IN) | payer MEDICARE ==
[~2019-01-23 23:09] MED LIST: ISOVUE-370 76%-LOCM 1 ML ONE
[2019-01-23] MEDS ORDERED: methylPREDNISolone Sod Succ/PF 125 MG/2 ML VIAL ONE (23:48)
[2019-01-23] MEDS ORDERED: diphenhydrAMINE 50 MG/ML VIAL ONE (23:48)
[2019-01-23 23:50] LABS: #Lymphocytes 0.9 thou/uL (1.20-3.40); #Monocytes 1.4 thou/uL (0.11-0.59); #Neutrophils 11.6 thou/uL (1.40-6.50); %Basophils 0.3 % (0.0-1.0); %Eosinophils 0.1 % (0.0-10.0); %Lymphocytes 6.1 % (21.0-51.0); %Monocytes 10.1 % (0.0-10.0); %Neutrophils 83.4 % (42.0-75.0); Hemoglobin 12.8 g/dL (14.0-18.0); Mean Corpuscular HGB CONC 32.1 g/dL (32.0-36.0); Mean Corpuscular Hemoglobin 32.8 pg (27.0-31.0); Platelet Count 200 thou/uL (130-400); RBC Distribution Width 13.2 % (11.5-14.5); Red Blood Cell (RBC) Count 3.91 mill/uL (4.70-6.10); White Blood Cell (WBC) Count 13.9 thou/uL (4.8-10.8)
[2019-01-23 23:53] LABS: Actual Bicarbonate (HCO3a) 23.2 mEq/L (22-28); Analyzer IN Cardio ER; Base Excess (BEa) -1.1 mEq/L (-2.0 to +3.0); CO2 Tension 37.6 mmHg (35.0-45.0); Calcium, Ionized 1.22 mmol/L (1.12-1.30); Carboxyhemoglobin (COHb) 1.1 gm% (0.0-3.0); Hemoglobin (Hb) 12.8 g/dL (14.0-18.0); O2 Tension (PaO2) 74.6 mmHg (> 70.0); Potassium - ABG Lab 3.63 mmol/L (3.70-5.30); pH, Arterial 7.41 (7.35-7.45)
[2019-01-23 23:57] LABS: INR-International Normal Ratio 1.2; PTT 31.2 SEC (22.9-36.1); Prothrombin Time 14.9 SEC (12.0-14.7)
[2019-01-24 00:08] LABS: Bilirubin Small (Negative); Blood, Urine Large (Negative); Clarity CLOUDY (Clear); Glucose, Urine (Dipstick) Negative (Negative); Leukocyte Moderate (Negative); Nitrite Negative (Negative); Protein, Urine (Dipstick) 100 mg/dL (Neg-Trace); Specific Gravity, Urine 1.026 (1.002-1.036); pH, Urine 6.5 (5.0-9.0)
[2019-01-24 00:09] LABS: Bacteria/HPF None Seen HPF (None Seen); Pathc Cast-AUWi Flag 1.01 (0-2.49)
[2019-01-24 00:10] LABS: ALT (SGPT) 37 U/L (8-55); AST (SGOT) 46 U/L (5-34); Albumin 2.8 g/dL (3.4-4.8); Alkaline Phosphatase 392 U/L (40-150); Anion Gap 14 mmol/L (10-20); BUN (Urea Nitrogen) 19 mg/dL (8.4-25.7); Bilirubin, Total 1.8 mg/dL (0.2-1.2); Calc. Creatinine Clearance 0 mL/min (70-130); Carbon Dioxide 24 mmol/L (23-31); Chloride 106 mmol/L (98-107); Estimated GFR-MDRD Greater than 90; Globulin 2.2 g/dL (2.4-3.5); Glucose 127 mg/dL (83-110); Lipase 12 U/L (8-78); Magnesium 1.7 mg/dL (1.6-2.6); Potassium 4.2 mmol/L (3.5-5.1); Sodium 140 mmol/L (136-145)
[2019-01-24 00:11] LABS: Yeast-AUWi Flag 55.2 (0-25.0)
[2019-01-24 00:24] LABS: Amphetamine Not Detected (NotDetected); Barbiturates Screen Not Detected (NotDetected); Benzodiazepine Screen Not Detected (NotDetected); Cocaine Metabolite Screen Not Detected (NotDetected); Medtox Control Line Valid? VALID (VALID); Medtox Reader # READER 4; Methadone Not Detected (NotDetected); Methamphetamine Not Detected (NotDetected); Opiate Screen Detected (NotDetected); Oxycodone Screen Not Detected (NotDetected); Phencyclidine (PCP) Not Detected (NotDetected); THC/Cannabinoid Screen Not Detected (NotDetected); Tricyclic Screen Not Detected (NotDetected)
[2019-01-24 00:27] LABS: Crystals/HPF RARE CA OXALATE HPF (Negative)
[2019-01-24 00:28] LABS: Renal Epithelial None Seen HPF (0-3); Transitional Epithelial NONE SEEN HPF (0-3); Yeast-All Forms None Seen HPF (None Seen)
[2019-01-24 00:37] LABS: Puncture Site RRA
[2019-01-24] MEDS ORDERED: Octreotide Acetate 50 MCG/ML AMP ONE (01:10)
[2019-01-24] MEDS ORDERED: Pantoprazole 40 MG VIAL ONE (01:10)
[2019-01-24] MEDS ORDERED: cefTRIAXone\\ROCEPHIN 1 GM VIAL ONE (01:11)
[2019-01-24] MEDS ORDERED: Naloxone HCl 0.4 mg/ml Vial ONE (01:15)
--- NOTE | 2019-01-24 01:24 | PDOC.FPRHP ---
- History of Present Illness Chief Complaint: found down History of Present Illness: 73 yo NH patient brought in by EMS after being found down. Due to AMS patient history provided by patient is limited. Per [facility] nurse patient had been hallucinating and more agitated for past couple of days. Today was found down with vomit on face, not in respiratory distress. Unsure how long he had been down for. Pt was recently discharged for left shoulder surgery. Patient denies drug use or recent alcohol use. He denies feeling SOB. In ED initial GCS 14, hypoxic at 85% on RA and started on NRB. Imaging showed small subsegmental PE in right upper lobe. Head imaging showed Posterior fossa with artifact vs. acute bleed. Also had hematemesis episode and was started on octreotide gtt and protonix due due to PMH significant for chronic alcohol abuse and imaging showing cirrhosis. He was given 1g rocephin. GI and neurosurgery were constuled with rx for repeat CT head in AM and plan for upper EGD. - Allergies/Adverse Reactions Allergies Allergy/AdvReac Type Severity Reaction Status Date / Time adhesive Allergy Verified 01/24/19 03:21 iodine Allergy Verified 01/24/19 03:21 Penicillins Allergy Hives Verified 01/24/19 03:21 povidone-iodine Allergy Verified 01/24/19 03:21 [From Betadine] soap [From Betadine] Allergy Verified 01/24/19 03:21 - Home Medications Medication Instructions Recorded Confirmed Type Acetaminophen [Pain Relief] 1,000 mg PO Q4HR PRN 01/18/19 01/24/19 History Aspirin [Aspir-Low] 81 mg PO DAILY 01/18/19 01/24/19 History Atenolol 50 mg PO BID 01/18/19 01/24/19 History Lisinopril 20 mg PO BID 01/18/19 01/24/19 History Multivitamin [Multi-Vitamin Daily] 1 tab PO DAILY 01/18/19 01/24/19 History Tamsulosin HCl [Flomax] 0.4 mg PO DAILY cap 01/23/19 01/24/19 Rx traMADol HCl [Ultram] 50 mg PO Q4H PRN tab 01/23/19 01/24/19 Rx - History PMHx: HTN, BPH PSHx: Right AKA, appendecotmy, left shoulder surgery FHx: n/c Social:1/2 pack a month, social drinking, denies drug use - Review of Systems ROS unobtainable: due to mental status (limited due to mental status) - Vital signs BP: 141/85 HR: 80 RR: 17 Tmax: 98 Pox: 93% on [face mask] Wt: [85kg] - Physical Exam -Constitutional: disheveled, ungroomed, agitated, A&O x2, GCS 15 HEENT: normocephalic and atraumatic, EOMI, conjunctiva clear Neck: supple, trachea midline Chest: no lesions Heart: RRR, normal S1/S2, no murmurs/rubs/gallops Lungs: good air movement -Lungs: wheezing diffusely -Abdomen: distended, non tender, mass in R side of abdomen -Musculoskeletal: R AKA left shoulder wound from surgical site, bandaged Neurological: no focal deficit Skin: no rash/lesions FMR H&P: Results - Labs Result Diagrams: 01/24/19 03:43 01/24/19 03:43 Lab results: WBC 13.9 thou/uL (4.8-10.8) H 01/23/19 23:39 Hgb 12.8 g/dL (14.0-18.0) L 01/23/19 23:39 Hct 40.0 % (42.0-52.0) L 01/23/19 23:39 MCV 102.0 fL (78.0-98.0) H 01/23/19 23:39 Plt Count 200 thou/uL (130-400) 01/23/19 23:39 Neutrophils % 83.4 % (42.0-75.0) H 01/23/19 23:39 ABG pH 7.41 (7.35-7.45) 01/23/19 23:46 ABG pCO2 37.6 mmHg (35.0-45.0) 01/23/19 23:46 ABG pO2 74.6 mmHg (> 70.0) H 01/23/19 23:46 Sodium 140 mmol/L (136-145) 01/23/19 23:38 Potassium 4.2 mmol/L (3.5-5.1) 01/23/19 23:38 Chloride 106 mmol/L (98-107) 01/23/19 23:38 Carbon Dioxide 24 mmol/L (23-31) 01/23/19 23:38 BUN 19 mg/dL (8.4-25.7) 01/23/19 23:38 Creatinine 0.65 mg/dL (0.7-1.3) L 01/23/19 23:38 Glucose 127 mg/dL (83-110) H 01/23/19 23:38 Lactic Acid 2.8 mmol/L (0.5-2.2) H 01/24/19 00:05 Calcium 9.0 mg/dL (7.8-10.44) 01/23/19 23:38 Total Bilirubin 1.8 mg/dL (0.2-1.2) H 01/23/19 23:38 AST 46 U/L (5-34) H 01/23/19 23:38 ALT 37 U/L (8-55) 01/23/19 23:38 Alkaline Phosphatase 392 U/L (40-150) H 01/23/19 23:38 B-Natriuretic Peptide 339.6 pg/mL (0-100) H 01/23/19 23:38 Serum Total Protein 5.0 g/dL (5.8-8.1) L 01/23/19 23:38 Albumin 2.8 g/dL (3.4-4.8) L 01/23/19 23:38 Lipase 12 U/L (8-78) 01/23/19 23:38 Urine Ketones Trace mg/dL (Negative) H 01/23/19 23:54 Urine Blood Large (Negative) H 01/23/19 23:54 Urine Nitrite Negative (Negative) 01/23/19 23:54 Ur Leukocyte Esterase Moderate (Negative) H 01/23/19 23:54 Urine RBC 7-10 HPF (0-3) H 01/23/19 23:54 Urine WBC 11-20 HPF (0-3) H 01/23/19 23:54 Ur Squamous Epith Cells 4-6 HPF (0-3) H 01/23/19 23:54 Urine Bacteria None Seen HPF (None Seen) 01/23/19 23:54 FMR H&P: A/P - Problem List (1) Acute respiratory failure with hypoxia Current Visit: Yes Status: Acute Code(s): J96.01 - ACUTE RESPIRATORY FAILURE WITH HYPOXIA (2) Pulmonary embolism Current Visit: Yes Status: Acute Code(s): I26.99 - OTHER PULMONARY EMBOLISM WITHOUT ACUTE COR PULMONALE (3) Dvt femoral (deep venous thrombosis) Current Visit: Yes Status: Acute Code(s): I82.419 - ACUTE EMBOLISM AND THROMBOSIS OF UNSPECIFIED FEMORAL VEIN (4) Encephalopathy acute Current Visit: Yes Status: Acute Code(s): G93.40 - ENCEPHALOPATHY, UNSPECIFIED (5) Upper GI bleed Current Visit: Yes Status: Acute Code(s): K92.2 - GASTROINTESTINAL HEMORRHAGE, UNSPECIFIED (6) Cirrhosis Current Visit: Yes Status: Acute Code(s): K74.60 - UNSPECIFIED CIRRHOSIS OF LIVER (7) Alcohol abuse Current Visit: Yes Status: Acute Code(s): F10.10 - ALCOHOL ABUSE, UNCOMPLICATED (8) UTI (urinary tract infection) Current Visit: Yes Status: Acute - Plan #Acute hypoxic respiratory failure -2/2 to opioid overdose vs. PE -85% on RA in ED -UDS positive for opiates -s/p naloxone in ED with improvement in oxygenation on non-rebreather -GCS 15, no intubation needed at this point -continue resp. support with NRB #Active upper GI bleed -hematemesis episode in ED -esophgeal variceal bleed vs. esophagitis vs. gen[place] tear -hemodynamically stable, Hb at 12 -GI consulted, plan for scope in AM -NPO, octreotide gtt, protonix BID -NG tube suction if continue vomiting, zofran -recheck H/H with AM CBC #Encephalopathy, metabolic vs. hypoxic -ddx: hypoxia, hepatic encephalopathy, opioid overdose, alcohol intoxication -pending ammonia #RLL subsegmental PE/Right femoral DVT -suspected underlying hepatic malignancy (CT showing masses on liver) in conjunction with recent shoulder surgery -anticoagulation contraindicated due to #2 -consult CV surg in AM for possibility of IVC filter #Suspected intracranial bleed -CT head read shows small amt of acute extra-axial blood along tentorium cerebelli -GCS 14 on admision, 15 now -Neuro exam difficult to perform due to compliance, but benign -neurosurg consulted, plan for repeat CT brain in AM -neuro checks #UTI -UA: mod LE -s/p rocephin -pending urine culture #Leukocytosis -13.9, no bands, afebrile -s/p rocephin -pending procal & blood cultures, will hold on further abx until procal returns -source consideration: UTI vs. wound vs. stress reaction vs. PE/DVT #Hx of alcohol abuse (suspected) -ASE protocol dispo:>2 midnights Discussed w/ Dr. Islas FMR H&P: Upper Level - Pertinent history Pt unable to provide history. Reportedly found down from presumed fall at [facility]. - Pertinent findings Pt vomiting dark emesis in room. - Plan Date/Time: 01/24/19 4624 I, Adán Johsnon, have evaluated this patient and agree with findings/plan as outlined by sports intern resident. Pertinent changes/additions are listed here. 1. Acute Encephalopathy - Likely 2/2 tramadol overdose vs other opiod as pt improved with Narcan. Also consider hypoxia/hypercapnia as he was having desaturations that have improved with O2. 2. Acute Hypoxic respiratory failure. Likely 2/[address], but did have wheezes as well. S/p 1 Duoneb in ED which we will shhedule respiratory status improving with Narcan. ABG obtained and will order repeat. No intubation indicated at this time as he is improving, but will continue to monitor. PE also likely contributing. 3. Subsegmental PE - New onset. RF of likely malignancy and post operative immobility. Acute hemorrhaging so will hold anticoagulants. 4. Acute Cerebral Hemorrhage - vs artifact. Neurosurgery notified in ED and will see him in AM. Will order f/u CT and appreciate neurosurgery recommendations. Hold all anticoagulants. H/H q4hr 5. Acute GI Bleed - Likely 2/[address] GI consulted in ED and reportedly plans to see him in ED. Will place on PPI gtt and NGT as needed. Trend H/H. NPO anticipate EGD in AM. 6. S/p Reconstructive shoulder surgery - On 01/19/19 and since been at inpatient facility. No acute issues. 7. Liver Mass - Likely malignant per CT as he also had lung nodules. Will need to f/u with biopsy once stable. 8. Ascites - This is presumed 2/2 liver cirrhosis and possibly cancer. Order hepatitis panel. Will need to be started on medications for liver failure once stable. Addendum - Attending - Attending Attestation Date/Time: 01/24/19 2329 I personally evaluated the patient and discussed the management with Dr. Paula on 01/24/2019 @0130 I agree with the History, Examination, Assessment and Plan documented above with any addition or exceptions noted below- 73 yo NH patient brought in by EMS after being found down. Due to AMS patient history provided by patient is limited. Per [facility] nurse patient had been hallucinating and more agitated for past couple of days. Today was found down with vomit and blood on face, not in respiratory distress. Unsure how long he had been down for. Pt was recently discharged for left shoulder surgery. PMH/PSH/All/Meds/SH reviewed and agree with resident's documentation. Afebrile P77 BP151/70 RR15 95% Exam repeated by me and agree with resident's findings. Labs: WBC=13.9, H/H=12.8/40.0, Xjb=144 , Na= 140, K=4.6, Yb=762, CO2=24, BUN/Cr=19/0.65, AST=46, ALT=32, Alk qctz=494, lactic acid=2.8, UDS (+) opiates, ABG 7.41/38/74/23, D-dimer=5.04, PT/INR=14.9/ 1.2 CT C-spine negative CT brain- slight asymmetry of left tentorium cerbelli can't exclude small amount of extr-axial blood CTA chest - distal subsegmental filling defect in RLL; multiple low attenuation hepatic lesions suspicious for metastases; large volume ascites Venogram- partially occlusive thrombosis of proximal, mid, distal right femoral vein A/P: 1) AMS- most likely multifactorial- will check ammonia to evaluate for hepatic encephalopathy; mentation appears improved after narcan and oxygen. Continue oxygen and wean as tolerated. 2) Possible subdural- neurosurgery consulted from ER; plan to repeat CT in AM 3) Possible GI bleed- h/o of possible hematemesis at [place]- monitor H/H; GI consulted; Continue protonix. 4) Right DVT and PE- continue supportive care; unable to anticoagulate due to possible subdural and possible GI bleed. May need [place] filter if unable to start anticoagulate. 5) Hepatic lesions- will need further imaging to evaluate. Review of prior scans showed a right renal mass seen in 2016 suspicious for malignancy.
[2019-01-24] MEDS ORDERED: Octreotide Acetate 1,250 MCG in Sodium Chloride 0.9% 250 ML 250 ML IVPB SCH (01:45)
[2019-01-24] MEDS ORDERED: Ondansetron ODT 4 MG TAB SL PRN (03:18)
[2019-01-24] MEDS ORDERED: Ondansetron PF 4 MG/2 ML Vial IVP PRN (03:18)
[2019-01-24 04:11] LABS: Lactic Acid 1.9 mmol/L (0.5-2.2)
[2019-01-24 04:24] LABS: ALT (SGPT) 32 U/L (8-55); AST (SGOT) 42 U/L (5-34); Albumin 2.7 g/dL (3.4-4.8); Alkaline Phosphatase 352 U/L (40-150); Anion Gap 12 mmol/L (10-20); BUN (Urea Nitrogen) 18 mg/dL (8.4-25.7); Bilirubin, Total 1.8 mg/dL (0.2-1.2); Calc. Creatinine Clearance 123 mL/min (70-130); Calcium 8.9 mg/dL (7.8-10.44); Carbon Dioxide 26 mmol/L (23-31); Chloride 106 mmol/L (98-107); Estimated GFR-MDRD Greater than 90; Globulin 2.2 g/dL (2.4-3.5); Glucose 148 mg/dL (83-110); Potassium 3.8 mmol/L (3.5-5.1); Protein, Total 4.9 g/dL (5.8-8.1); Sodium 140 mmol/L (136-145)
[2019-01-24 04:32] LABS: HBSAB Concentration 0.88 mIU/mL; HBSAg Index 0.22 S/CO (0-0.99); Hep B Surf AB Non-Reactive (NonReactive); Hep B Surf Ag Non-Reactive S/CO (NonReactive); Hep C IgG Ab Non-Reactive (NonReactive); Hep C Index 0.07 S/CO (0-0.79)
[2019-01-24 05:02] LABS: Band 2 % (5-11); Hemoglobin 11.9 g/dL (14.0-18.0); Hypochromia SLIGHT = 6-15 cells (100X) (0-5/hpf); Lymphocytes 3 % (21-51); MDiff Complete? YES; Macrocytosis SLIGHT = 6-15 cells (100X) (0-5/hpf); Mean Corpuscular HGB CONC 32.5 g/dL (32.0-36.0); Mean Corpuscular Hemoglobin 33.4 pg (27.0-31.0); Mean Platelet Volume 8.9 fL (7.4-10.4); Monocytes 1 % (0-10); Neutrophil 94 % (42-75); Platelet Count 174 thou/uL (130-400); Platelet Morphology Comment Appears Adequate; RBC Distribution Width 13.2 % (11.5-14.5); Red Blood Cell (RBC) Count 3.55 mill/uL (4.70-6.10); White Blood Cell (WBC) Count 12.6 thou/uL (4.8-10.8)
[2019-01-24] MEDS: Lactated Ringer's 1,000 ML IV SCH ×3 (05:13→18:10)
[2019-01-24] MEDS ORDERED: hydrALAZINE 20 MG/ML VIAL SLOW IVP PRN (06:22)
--- NOTE | 2019-01-24 07:00 | RAD ---
SINGLE VIEW CHEST: HISTORY: Fall at [facility] with head trauma and vomiting. COMPARISON: 02/07/2016 FINDINGS: Single view of the chest shows a normal sized cardiomediastinal silhouette. There is no evidence of consolidation, mass, or pleural effusion. The patient is status post recent left shoulder arthroplas ty. IMPRESSION: No evidence of acute cardiopulmonary disease. POS: C
[2019-01-24] MEDS ORDERED: Prevnar 13-Val Conj/PF 0.5 ML SYRINGE IM ONE (09:00)
--- NOTE | 2019-01-24 09:19 | ULT ---
PRELIMINARY REPORT/[facility]/EMERGENTY AFTER-HOURS PROCEDURE Addendum created by Luis Miguel Nickerson MD on 01/24/2019 2:54 AM Central Time ([place]) Findings discu ssed with JOSLYN AVILES MD at time of interpretation. Initial Report created on 01/24/2019 2:51 AM Central Time ([place]) US Duplex Bilateral Lower Extremity Veins EXAM DATE/TIME: 01/24/2019 2:02 AM CLINICAL HISTORY: 73 years old, male; Pain; Leg, upper; Bilateral; Prior surgery; Surgery date: 6+ months; Surgery type : RT leg amputated below RT knee TECHNIQUE: Real-time duplex ultrasound of the Bilateral Lower Extremities with 2-D russo scale, color Doppler los w and spectral waveform analysis. Complete exam focused on the bilateral lower extremity veins. COMPARISON: No relevant prior studies available. FINDINGS: Right deep veins: There is partially occlusive thrombosis of the proximal, mid, and distal right femo ral vein. Right common femoral vein is patent. Right superficial veins: Saphenofemoral junction is patent without thrombus. Right calf/foot arteries: Right lower leg amputation. Left deep veins: Unremarkable. The common femoral, femoral, proximal profunda femoral and popliteal v eins are patent without thrombus. Normal Doppler waveforms. Normal compressibility and/or augmentation response. Left superficial veins: Saphenofemoral junction is patent without thrombus. Soft tissues: Superficial edema. IMPRESSION: 1. There is partially occlusive thrombosis of the proximal, mid, and distal right femoral vein. 2. No DVT in the left lower extremity. 3. Superficial edema. Thank you for allowing us to participate in the care of your patient. Dictated and Authenticated by: Luis Miguel Nickerson MD 01/24/2019 2:51 AM Central Time ([place]) FINAL REPORT BILATERAL LOWER EXTREMITY VENOUS DOPPLER ULTRASOUND: Date: 01/24/19 HISTORY: Bilateral leg pain. Surgery 6 months ago. FINDINGS/IMPRESSION: Multiple longitudinal and transverse images of the right and left lower extremity venous systems are obtained using a multihertz linear array transducer. Real-time, color flow, and spectral waveform Dop pler analysis Demonstrates areas of echogenicity seen in the right superficial femoral vein, compatible with likely old clot which has secondarily recanalized. This is seen in the right proximal mid and distal superf icial femoral vein. The right popliteal vein is patent. No evidence of left lower extremity venous thrombosis seen. I agree with the preliminary report given by [facility]. POS: RUSS
--- NOTE | 2019-01-24 09:38 | CT ---
PRELIMINARY REPORT/[facility]/EMERGENTY AFTER-HOURS PROCEDURE CT Angiography Chest With Contrast EXAM DATE/TIME: 01/24/2019 12:24 AM CLINICAL HISTORY: 73 years old, male; Signs and symptoms; Dyspnea and shortness of breath; Patient HX: Syncope; SOB; Fa ll at [facility] home. Unknown loc. Vomit found on PT. ; Additional info: PT combative for exam. TECHNIQUE: Axial computed tomographic angiography images of the chest with intravenous contrast using CT angiogr aphy protocol. MIP reconstructed images were created and reviewed. COMPARISON: No relevant prior studies available. FINDINGS: Pulmonary arteries: Evaluation of the distal subsegmental pulmonary arteries in the lung bases is martines ited by artifact. On images 60-62 of axial series 2, there is what appears to be a distal segmental/s ubsegmental pulmonary filling defect in the right lower lobe which is suspicious for PE, even allowing for artifact; however, flow artifact not excluded. Aorta: Atherosclerotic aorta. No aneurysm or acute aortic syndrome. Lungs: Multiple small indeterminate pulmonary nodules measuring up to 5 mm in size. Pleural space: Small bilateral pleural effusions. Heart: Cardiomegaly. Mediastinum: Diffuse inflammatory thickening of the wall of the esophagus compatible with esophagitis . Small hiatal hernia. Liver: Hepatic cirrhosis. Multiple low attenuation hepatic lesions are indeterminate, suspicious for metastases. Intraperitoneal space: Large volume ascites. Lymph nodes: Unremarkable. No enlarged lymph nodes. Bones/joints: Left shoulder prosthesis. Soft tissues: Unremarkable. IMPRESSION: 1. Evaluation of the distal subsegmental pulmonary arteries in the lung bases is limited by artifact. On images 60-62 of axial series 2, there is what appears to be a distal segmental/subsegmental pulmo nary filling defect in the right lower lobe which is suspicious for PE, even allowing for artifact; h owever, flow artifact not excluded. 2. Diffuse inflammatory thickening of the wall of the esophagus compatible with esophagitis. Small hi atal hernia. 3. Hepatic cirrhosis. 4. Multiple low attenuation hepatic lesions are indeterminate, suspicious for metastases. 5. Large volume ascites. 6. Multiple small indeterminate pulmonary nodules measuring up to 5 mm in size. 7. Small bilateral pleural effusions. Thank you for allowing us to participate in the care of your patient. Dictated and Authenticated by: Luis Miguel Nickerson MD 01/24/2019 12:51 AM Central Time ([place]) FINAL REPORT CT ARTERIOGRAM CHEST WITH IV CONTRAST AND 3D MIP IMAGIN01/24/2019 0028 HOURS HISTORY: Exam performed on an emergency basis. Dyspnea. Chest pain. Fall. FINDINGS: I agree with the preliminary report by from [facility]. Possible peripheral small pulmonary emboli, right lower lobe. No central embolus is apparent. Severe long segment circumferential thickening of the esophagus. Cirrhotic appearance of the liver w ith multiple low density masses, suggesting metastatic disease. POS: ABBY
--- NOTE | 2019-01-24 09:40 | CT ---
PRELIMINARY REPORT/[facility]/EMERGENTY AFTER-HOURS PROCEDURE CT Cervical Spine Without Contrast EXAM DATE/TIME: 01/24/2019 12:19 AM CLINICAL HISTORY: 73 years old, male; Injury or trauma; Fall; Initial encounter; Abrasion; Patient HX: Fall at detention. Unknown loc. Vomit found on PT. ; Additional info: PT combative for exam TECHNIQUE: Axial computed tomography images of the cervical spine without intravenous contrast. Coronal and sagi ttal reformatted images were created and reviewed. COMPARISON: No relevant prior studies available. FINDINGS: Vertebrae: No acute fracture. Normal alignment. Discs/Spinal canal/Neural foramina: No spinal stenosis. No neural foraminal narrowing. Soft tissues: Unremarkable. Lungs: Lung apices are normal. IMPRESSION: No acute findings. Thank you for allowing us to participate in the care of your patient. Dictated and Authenticated by: Luis Miguel Nickerson MD 01/24/2019 12:45 AM Central Time ([place]) FINAL REPORT EMERGENT AFTER HOURS CT CERVICAL SPINE WITHOUT CONTRAST: FINDINGS/IMPRESSION: I agree with the findings and impression given in the preliminary report, per [facility] physician. There are moderate degenerative changes in the cervical spine without acute osseous abnormality.
--- NOTE | 2019-01-24 09:42 | CT ---
PRELIMINARY REPORT/[facility]/EMERGENTY AFTER-HOURS PROCEDURE Addendum created by Luis Miguel Nickerson MD on 01/24/2019 12:41 AM Central Time ([place]) Findings disc ussed with JOSLYN AVILES MD at time of interpretation. Initial Report created on 01/24/2019 12:39 AM Central Time ([place]) CT Head Without Contrast EXAM DATE/TIME: 01/24/2019 12:21 AM CLINICAL HISTORY: 73 years old, male; Injury or trauma; Fall; Initial encounter; Abrasion; Not specified; Patient HX: F all at [facility]. Unknown loc. Vomit found on PT. ; Additional info: PT combative for exam TECHNIQUE: Axial computed tomography images of the head/brain without contrast. COMPARISON: No relevant prior studies available. FINDINGS: Brain: Volume loss and chronic small vessel ischemic change. There is slight asymmetry of the left te ntorium cerebelli relative to the right which is probably incidental and related to volume averaging and obliquity of the tentorium; however, a small amount of acute extra-axial blood along the tentoriu m cerebelli cannot be excluded on this study. Absence of coronal reconstructions and absence of prior studies limits characterization. Ventricles: Normal. No ventriculomegaly. Bones/joints: Chronic postsurgical changes of the skull. Sinuses: Dependent low attenuation fluid in the right maxillary sinus suggests sinusitis. Small left frontal sinus osteoma. Mastoid air cells: Visualized mastoid air cells are unremarkable. No mastoid effusion. Soft tissues: Unremarkable. Vasculature: Aneurysm clip. IMPRESSION: 1. Dependent low attenuation fluid in the right maxillary sinus suggests sinusitis. 2. There is slight asymmetry of the left tentorium cerebelli relative to the right which is probably incidental and related to volume averaging and obliquity of the tentorium; however, a small amount of acute extra-axial blood along the tentorium cerebelli cannot be excluded on this study. Absence of c oronal reconstructions and absence of prior studies limits characterization. Thank you for allowing us to participate in the care of your patient. Dictated and Authenticated by: Luis Miguel Nickerson MD 01/24/2019 12:39 AM Central Time ([place]) FINAL REPORT EMERGENT AFTER HOURS CT BRAIN WITHOUT CONTRAST: COMPARISON: 12/30/2015 FINDINGS/IMPRESSION: I agree with the findings and impression given in the preliminary report, per [facility] physician. There is slight asymmetry in the hyperdensity along the tentorium. This is not seen on the prior exa mination, and a small amount of blood cannot be excluded.
[2019-01-24] MEDS: Sodium Chloride 0.9% (PF) 10 ML VIAL IV SCH ×2 (10:05→20:33)
[2019-01-24] MEDS: Tamsulosin HCl 0.4 MG CAP PO SCH (10:05)
[2019-01-24] MEDS: Pantoprazole 40 MG VIAL IVP SCH ×2 (10:05→20:33)
[2019-01-24 10:25] LABS: Hep C IgG Ab Non-Reactive (NonReactive); Hep C Index 0.08 S/CO (0-0.79)
--- NOTE | 2019-01-24 10:50 | PDOC.EVN ---
Event Note - Event Note Event Note: Patient discussed with Dr. Islas who performed H&P today (01/24/29) and resident physician Dr. Grider who has assumed care of the patient. Mr Rivas is an unfortunate 73 y/o male who was found down. Presumed syncopal event/fall/opiod overuse. Blood tinged vomit was seen on his face. Was given Narcan in the Er and workup began. At this time he has been diagnosed with subsegmental PE and residual RLE DVT. Patient sating 92-93% on RA at this time. Unable to anticoagulate at this time b/c of questionable IVH on CT scan and possible UGI bleed. Neuro Surg and GI consulted. Hold anticoagulation for now. Pulmonary and liver lesions most consistent with metastasis. Review of records show a renal mass in 2016 that was suspicious. Will order CT abd/pelvis with contrast once GI eval completed to determine primary source. Continue IMCU care.
--- NOTE | 2019-01-24 10:52 | CT ---
CT BRAIN: History: Possible follow up intracranial hemorrhage, confusion, anger. Technique: Noncontrast enhanced CT images of the brain obtained. Date: 01-24-19 Comparison: Earlier in the day. FINDINGS: There is an NG tube in place. A right intracranial aneurysm clip is in place. There is a tiny anterio r parafalcine lipoma in place, unchanged since the previous exam. Area of density seen along the left tentorium is again seen, unchanged since the previous exam, possi lavelle representing an area of hemorrhage. This is not significantly changed from the previous exam appr oximately 9 hours earlier. No other evidence of acute intracranial hemorrhage is seen. 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 There is also a small extraaxial collection of hyperdensity seen on axial Image 20 measuring approxim ately 9 mm. This is unchanged since the previous comparison CT from 9 hours earlier and may represent a small area of extraaxial hemorrhage also, versus a small meningioma. This area of extraaxial densi ty was not present on the patient's previous CT from 12-30-15. Continue with follow up CT images. IMPRESSION: 1. Small left frontotemporal area of hyperdensity which may represent a small area of hemorrhage. 2. Possible peritentorial left sided subdural hematoma, also unchanged since the previous exam from guille mccracken in the day. POS: [facility]
--- NOTE | 2019-01-24 12:21 | CON ---
DATE OF CONSULTATION: HISTORY OF PRESENT ILLNESS: The patient is a 73-year-old male with a past medical history of hypertension, BPH, chronic alcohol abuse with liver cirrhosis , who resides at the [facility], presented to the emergency department last night after being found down, having recently vomited. It is unknown how long the patient was down for. The patient was evaluated with noncontrast CT head and found to have hyperdensity in the posterior fossa that was concerning for acute bleed versus artifact. Neurosurgery was consulted for further evaluation of this findings. The patient has also several other medical issues that were discovered during his emergency department visit. He was hypoxic at 85% and started on a non-rebreather. He also had several episodes of hematemesis and was found to have a left lower extremity DVT and right lobar pulmonary embolism. Repeat CT head this morning shows no evidence of acute bleeding. See Neurosurgery's opinion. In the posterior fossa, there is a small hyperdensity representing tiny left subdural hematoma. There is no mass effect or midline shift. PAST MEDICAL HISTORY: Hypertension, chronic alcohol abuse, BPH, liver cirrhosis. PAST SURGICAL HISTORY: Right AKA, appendectomy, left shoulder surgery. FAMILY HISTORY: Noncontributory. SOCIAL HISTORY: The patient lives at the [facility]. He smokes approximately one pack cigarettes per month. Drinks socially. Denies any drug use. REVIEW OF SYSTEMS: Unobtainable secondary to altered mental status. PHYSICAL EXAMINATION: GENERAL: The patient awakens easily to voice, appears to be in no acute distress. VITAL SIGNS: Temperature is 98.6, pulse is 85. The patient is 98% on nasal cannula. BP is 131/70. HEENT: Head, normocephalic and atraumatic. Eyes, PERRLA. Extraocular movements intact. ENT, oral mucosa is pink, intact, and moist. The patient has normal voice. NECK: Nontender to palpation. Free active range of motion. No meningismus or nuchal rigidity. CARDIAC: Regular rate and rhythm. LUNGS: The patient has symmetric chest expansion. No evidence of dyspnea at this time. MUSCULOSKELETAL: Right AKA. Remainder of extremities, free active range of motion. NEUROLOGIC: No focal neurologic deficits are appreciated. The patient awakens easily to voice. He is confused and not answering questions appropriately. He is seen moving all 4s with no evidence of focal weakness. ASSESSMENT AND PLAN: This is a 73-year-old male found down with CT head that showed hyperdensity in the posterior fossa concerning for acute bleed. His repeat head CT is stable, and we do not feel that hyperdensity represents acute bleeding in the posterior fossa. However, there is a small tiny left-sided subdural along the parietal aspect. This is very small and has no mass effect or midline shift. Neurosurgery is not recommending any intervention for the subdural. He does not require any neurosurgical followup. The patient is currently being kept off anticoagulants considering his GI bleed. We agree with this with regard to his recent tiny subdural. Again, no Neurosurgery followup is required for this and please reach out to Neurosurgery for additional questions or concerns. Job ID: [id number] [facility] [place]
--- NOTE | 2019-01-24 13:54 | CON ---
DATE OF CONSULTATION: 01/24/2019 REFERRING PHYSICIAN: Frannie Paula M.D., [facility]. REASON FOR CONSULTATION: History of GI bleeding. HISTORY OF PRESENT ILLNESS: Mr. Davon Rivas is a 73-year-old fragile looking male, brought to the ER via EMS after the patient found lying down. The patient was found to have some blood around the mouth and face as per the ER doctor. The patient had an NG tube placement done. He was also started on IV Protonix and also IV octreotide. There is no proper history available. The patient was hospitalized and he has done well through the night without any nausea and vomiting. He has NG tube, which shows a small amount of dark blood, but no lilo blood seen. Vital signs are stable. He tends to doze off and he is very sleepy. When he wakes up, he kind of becomes very combative and also very vocal and uncooperative. He is confused. He denies abdominal pain, nausea, vomiting. He does not remember who brought him to the hospital and what happened. He had no prior history of any GI disorders. The patient had a left shoulder surgery by Dr. Pena on 01/19/2019. The patient also has a previous yvgqi-niv-spit amputation in the right leg and he cannot tell me how long ago. The patient is not oriented to time, place, and person. I did talk to the ICU nurse and they tell me he has been combative and confused. A neurology consult is pending. As per admitting history and physical has a history of alcohol abuse in the past. There is no prior history of any GI bleeding. MEDICAL ILLNESSES: 1. Hypertension. 2. Benign prostatic hypertrophy. 3. Appendectomy. 4. Right leg amputation, above-knee. 5. Left shoulder surgery on 01/19/[address] Pena. SOCIAL HISTORY: The patient is a smoker. Smokes one half pack of cigarettes per day. Also drinks alcohol. No illicit drug abuse. SYSTEM REVIEW: Is not obtainable. PHYSICAL EXAMINATION: GENERAL: He is very sleepy and tends to dose off and even if he wakes up, he is confused and does not answer questions properly. His pulse is 80, blood pressure is 140/80. HEENT: Conjunctivae clear. NECK: Supple. No adenitis or thyromegaly noted. CARDIOVASCULAR: First and second heart sounds. LUNGS: Clear to auscultation. ABDOMEN: Soft. No organomegaly. No tenderness. EXTREMITIES: Right above-knee amputation, left leg, no edema. LABORATORY DATA: Shows CBC WBC 69511, hemoglobin 12.8, today 11.9, is dropping, hematocrit 40, dropping to 36.6, MCV 102, platelet count is 12,000, polymorph 94, lymphocytes 3. Chemistry panel; sodium is 140, potassium 3.8, chloride 106, bicarb 26, BUN is 18, creatinine 0.68, glucose 148, calcium 8.9, bilirubin 1.8, AST 43, ALT 32, alkaline phos 352, albumin is 2.7. IMAGING: The patient had a CT scan of brain and does show a small left frontotemporal area of hypodensity, most likely represents hemorrhage. He also has left subdural hematoma. He had a CT angiogram of the chest, which shows pulmonary embolus, thickening of some esophageal wall compatible with esophagitis, liver cirrhosis and ascites. CLINICAL IMPRESSION: 1. A 73-year-old male brought by EMS after patient was found lying down today. There is some blood around the mouth and also over the facial area, etc. The patient has had no hematemesis at least in the ER or any melena in the ICU. The patient's blood count is stable. The anemia essentially is mild. The patient had normal stool today. He is confused and combative. He is not able to give any history. 2. Subdural hematoma by CT scan. 3. Possible pulmonary embolus by CT scan. 4. Status post itxkr-hhg-mzku amputation, right side. 5. Hypertension. 6. Benign prostatic hypertrophy. RECOMMENDATION: Continue IV Protonix and follow up H and H. If we can obtain a consent from the family, I will plan for EGD later on today. At the present time, there is no family member available at the bedside. Job ID: [id number]
[2019-01-24] MEDS ORDERED: PROPOFOL 200 MG/20 ML VIAL ONE (14:54)
[2019-01-24] MEDS ORDERED: Lidocaine 1% PF 5 ML VIAL ONE (14:54)
[2019-01-24] MEDS ORDERED: PROPOFOL 40 ML ONE (18:20)
[2019-01-24] MEDS ORDERED: Promethazine HCl 25 MG/ML VIAL SLOW IVP PRN (19:19)
[2019-01-24] MEDS ORDERED: Ondansetron HCl/PF 4 MG/2 ML Vial IVP PRN (19:19)
[2019-01-24] MEDS ORDERED: Promethazine HCl 25 MG/ML VIAL IM PRN (19:19)
[2019-01-25] MEDS: Lactated Ringer's 1,000 ML IV SCH ×3 (01:52→19:32)
--- NOTE | 2019-01-25 06:01 | PDOC.EVN ---
Event Note - Event Note Event Note: Discussed patient with [facility] admitting physician, this patient should be managed by [facility] due to having being recently discharged by them. [facility] will take over care on 01/25
[2019-01-25] MEDS: cefTRIAXone\\ROCEPHIN 1 GM in Sodium Chloride 0.9% 100 ML IVPB SCH (09:10)
[2019-01-25] MEDS: Pantoprazole 40 MG VIAL IVP SCH ×2 (09:10→20:18)
[2019-01-25] MEDS: Tamsulosin HCl 0.4 MG CAP PO SCH (09:11)
[2019-01-25] MEDS: Sodium Chloride 0.9% (PF) 10 ML VIAL IV SCH ×2 (09:11→20:18)
[2019-01-25] MEDS ORDERED: Lidocaine 1% PF 5 ML VIAL ONE (11:23)
[2019-01-25] MEDS ORDERED: PROPOFOL 200 MG/20 ML VIAL ONE (11:23)
[2019-01-25] MEDS: Melatonin 3 MG TAB PO PRN (20:18)
--- NOTE | 2019-01-25 23:25 | OP ---
DATE OF PROCEDURE: 01/25/2019 OPERATIVE PROCEDURE: Esophagogastroduodenoscopy. PREOPERATIVE DIAGNOSIS: A 73-year-old male with history of vomiting blood. An EGD was done yesterday. The EGD was suboptimal because of retained food material. The patient underwent a repeat EGD. POSTOPERATIVE DIAGNOSES: 1. Erosive esophagitis, large ulceration over the distal esophagus, and esophagitis. 2. Markedly edematous, erythematous distal esophagus. Cellulitis cannot be ruled out because of the ulcerations with difficulty seeing. 3. Hiatus hernia. 4. Normal stomach, slight mucosal hyperemia, edema. DESCRIPTION OF PROCEDURE: The patient was placed on his back and was given sedation by Anesthesia Department. The head was kept in a high-level because of risk of aspiration. The patient could not lie on his left lateral position because of recent left shoulder surgery. A bite-block was placed. A Pentax video gastroscope under direct vision was passed down the oropharynx past the GE junction into the stomach and subsequently into the descending duodenum. Although the patient is supposed to be n.p.o., he had around 350 mL of liquid in the stomach, which was suctioned out. The upper two-thirds of the esophagus . Over the distal esophagus, the patient was found to have esophagitis, large ulceration, and mucousy edema. No biopsies were taken at this time because possibly that could have cellulitis. Although, I could not definitely see the esophagus because of ulcerations, I did not feel comfortable doing a biopsy of the stomach. In the GE junction, no pathology seen except for small hiatus hernia. Retroflexion failed to show any pathology in the fundus or cardia. In the gastric body, gastric antrum, no pathology seen. The patient had fairly large amount of fluid in the stomach, almost 350 mL was aspirated. The pyloric opening is very spastic and edematous. I was able to get into the duodenal bulb, but I do not see any pathology in the duodenal bulb. The stomach decompressed and the scope was removed. RECOMMENDATIONS: 1. Protonix 40 twice a day. 2. Diet as tolerated. 3. A repeat EGD in 3 months' time and possible biopsy at that time. Job ID: [id number]
--- NOTE | 2019-01-26 01:51 | CON ---
DATE OF CONSULTATION: 01/25/2019 HISTORY OF PRESENT ILLNESS: Mr. Rivas is a 73-year-old male. He is admitted with altered mental status. Family says that he has improved dramatically. He had recently undergone shoulder surgery repair after a fall and a fracture. He has one leg and gets around with crutches and a scooter. He has cirrhosis. His family was told that he was found down unconscious, but family has also reviewed notes said that he was found coughing up blood and awake, so it is not well clear to me where he was and when he was transferred to the hospital. The notes suggest that he was incoherent when he arrived here. He is clearly able to quickly answer questions at this time. PAST MEDICAL HISTORY: Remarkable for hypertension, chronic alcohol use, cirrhosis, and BPH. PAST SURGICAL HISTORY: He has a right oecol-xxt-xlul amputation, appendectomy, and recently had left shoulder surgery. FAMILY HISTORY: Negative for lung disease in early age. SOCIAL HISTORY: Chronic alcohol use. REVIEW OF SYSTEMS: 10 point review of systems completed, otherwise negative. PHYSICAL EXAMINATION: GENERAL: He is admitted with altered mental status. VITAL SIGNS: His temperature is 100, heart rate 85, respiratory rate 18, oximetry is 92 on room air. HEENT: Pupils are equal. Sclerae anicteric. NECK: Supple. LUNGS: Clear. HEART: Regular rhythm. S1 and S2 are normal. ABDOMEN: Soft and nontender. EXTREMITIES: Without clubbing, cyanosis, or edema. His AKA stump is well healed. LABORATORY DATA: White count 12.6, hemoglobin 11.9, platelets 174. INR was 1.2 two days ago. PH 7.41, pCO2 of 37, pO2 of 74 two days ago. Sodium 140, potassium 3.8 , chloride 106, bicarb 26, BUN 18, creatinine 0.63, bilirubin is 1.8, AST is 42, ALT is 32, protein 4.9, albumin is 2.7. Alcohol was negative. Drug screen was positive only for opiates 2 days ago. Hepatitis antigen was negative. Hepatitis C antibody was nonreactive. Urinalysis was remarkable for large blood, but only 11 to 20 white cells. Cultures are negative. Imaging is remarkable for head CT showing a left frontotemporal hemorrhage and some possible small left subdural hematoma. Lower extremity venogram shows partially occlusive thrombus in the right lower extremity proximally, nothing in his left lower extremity. CT angiogram done in the emergency room showed a peripheral clot in subsegmental artery. He has a poor quality study. The right lower lobe may have shown a deep filling defect. IMPRESSION: 1. Thrombus in his amputated leg with possible defect on the CT angiogram. 2. Encephalopathy on admission, that is improved. 3. ? gastrointestinal bleed, status post EGD. There is no dictation back yet he appears to be clinically stable. 4. He is not anticoagulated, and if no clear-cut bleeding source was identified , he needs to have an inferior vena cava filter placed. We will be happy to follow the other physicians caring for him. This is a 70-minute consult, with greater than 50% of the time was spent on the unit coordinating care. Job ID: [id number] [facility]
[2019-01-26] MEDS: Lactated Ringer's 1,000 ML IV SCH ×3 (03:00→20:52)
--- NOTE | 2019-01-26 03:27 | OP ---
DATE OF PROCEDURE: 01/24/2019 OPERATIVE PROCEDURE: Esophagogastroscopy. PREOPERATIVE DIAGNOSIS: Upper gastrointestinal bleeding. POSTOPERATIVE DIAGNOSES: 1. Incomplete exam due to thick food material coating in the esophageal mucosa and the mucosal lesions not be appreciated. 2. Stomach empty of any fresh blood or any old blood. He did have some recent food material over the gastric antrum and proximal stomach and the scope could not be advanced into the duodenal bulb because of food material. The exam was limited and did not show any bleeding from the esophagus or the stomach. DESCRIPTION OF PROCEDURE: The patient was placed on his back as he could not be turned on his left lateral position because of recent left shoulder surgery. A bite-block was placed. The patient was given sedation by Anesthesia Department. A Pentax video gastroscope under direct vision was passed down the oropharynx into the esophagus. There was no blood seen in the esophagus. The esophageal mucosa was coated with thick food material. The mucosal lesions could not be appreciated. However, I did not see any fresh blood. I tried to wash out the esophagus with some water irrigation. However, could not be washed out. The scope advanced into the stomach. The stomach is free of any blood or any old blood. The stomach showed diffuse mucosal hyperemia. The patient had some food noted in the proximal stomach and also the gastric antrum and the pyloric opening. I tried to irrigate and tried to get to the duodenal bulb. This could not be done because of solid food occupying the gastric antrum. After some initial irrigation, I realized it probably would not bepossible to get the scope into the duodenum. As there was no fresh blood seen, procedure tomorrow. Job ID: [id number]
[2019-01-26] MEDS ORDERED: Levofloxacin 500 mg/D5W 100 ml Premix Bag ONE (08:54)
[2019-01-26] MEDS ORDERED: CEFAZOLIN 1 GM VIAL ONE (08:54)
[2019-01-26] MEDS ORDERED: Sodium Chloride 0.9% 100 ML ONE (08:55)
[2019-01-26] MEDS: Sodium Chloride 0.9% (PF) 10 ML VIAL IV SCH ×2 (09:19→20:59)
[2019-01-26] MEDS: Tamsulosin HCl 0.4 MG CAP PO SCH (09:19)
[2019-01-26] MEDS: Pantoprazole 40 MG VIAL IVP SCH ×2 (09:19→20:59)
[2019-01-26] MEDS: cefTRIAXone\\ROCEPHIN 1 GM in Sodium Chloride 0.9% 100 ML IVPB SCH (09:19)
[2019-01-26] MEDS ORDERED: Iopamidol 370 76% 50 ML VIAL FS ONE (10:00)
[2019-01-26 13:16] LABS: %Basophils 0.1 % (0.0-1.0); %Eosinophils 0.5 % (0.0-10.0); %Lymphocytes 12.7 % (21.0-51.0); %Monocytes 12.7 % (0.0-10.0); Hemoglobin 11.4 g/dL (14.0-18.0); Mean Corpuscular HGB CONC 31.6 g/dL (32.0-36.0); Mean Corpuscular Hemoglobin 32.6 pg (27.0-31.0); Mean Platelet Volume 8.6 fL (7.4-10.4); Platelet Count 165 thou/uL (130-400); RBC Distribution Width 13.5 % (11.5-14.5); Red Blood Cell (RBC) Count 3.49 mill/uL (4.70-6.10); White Blood Cell (WBC) Count 8.1 thou/uL (4.8-10.8)
[2019-01-26 13:44] LABS: Anion Gap 9 mmol/L (10-20); BUN (Urea Nitrogen) 19 mg/dL (8.4-25.7); Calc. Creatinine Clearance 128 mL/min (70-130); Calcium 8.5 mg/dL (7.8-10.44); Carbon Dioxide 28 mmol/L (23-31); Chloride 109 mmol/L (98-107); Estimated GFR-MDRD Greater than 90; Glucose 146 mg/dL (83-110); Potassium 3.8 mmol/L (3.5-5.1); Sodium 142 mmol/L (136-145)
[2019-01-26] MEDS ORDERED: methylPREDNISolone Sod Succ 40 MG VIAL IVP SCH (16:00)
[2019-01-26] MEDS ORDERED: diphenhydrAMINE 50 MG/ML VIAL IVP SCH (16:00)
--- NOTE | 2019-01-26 16:40 | ULT ---
LIMITED ABDOMINAL ULTRASOUND: Indication: Evaluation of abdominal ascites. FINDINGS: There is moderate ascites demonstrated within the imaged four quadrants of the abdomen. IMPRESSION: Moderate abdominal ascites. POS: [facility]
--- NOTE | 2019-01-26 16:48 | CON ---
DATE OF CONSULTATION: 01/26/2019 HISTORY OF PRESENT ILLNESS: This is a 73-year-old white male I was asked to see today the December because of concern about a Goldman catheter placement. This patient was admitted a couple of days ago it looks like I think to the [facility] Medicine service. He came in with some altered mental status. I believe he had been I think in rehab after a left shoulder procedure that occurred after a fall. He only has his left lower extremity. He has a right above knee amputation and uses a crutch and a scooter and apparently he had a fall and injured his shoulder and then had surgery. When he was brought in, he apparently found on the floor and there was I think concerned that he did either coughed up or thrown up some blood, so he was brought in to the hospital. He has had an evaluation by Dr. Sparrow that has included I think upper and lower GI. The upper GI showed erosive esophagitis with a large ulceration. He may not have had a lower GI study I guess he did just upper. He has had a venogram done that did show some thrombosis of the right femoral vein. I believe he is looking at probably having a vena cava filter placed as I do not think they can anticoagulate him because of the findings on his EGD. He also has a history of cirrhosis, assuming that this is probably alcoholic cirrhosis. He has a history of hypertension and a history of lower urinary tract symptoms/BPH. SURGICAL HISTORY: Includes an appendectomy, left shoulder surgery, right above knee amputation. SOCIAL HISTORY: He still smokes. He still drinks. UROLOGIC HISTORY: On talking with him, to his knowledge, he has never had any prostate cancer. Diagnosis prostate surgery. Generally, he has not had trouble urinating. He does not have a catheter in and he had when he had no place when he came in through the emergency room during this visit. He denies any history of blood in the urine. On talking with the nursing staff regarding him, they said that he has not had great urine output while on the B side of the unit and there was a concern that the catheter was not draining, so they actually had done a bedside bladder ultrasound that showed over a L in the bladder. For this reason, they were concerned that the catheter was occluded, so they removed it and placed a new coude catheter and did not blow up the balloon, but left it in and felt like it was in but did not really drain and that was the reason they were calling the consult. CURRENT LABORATORIES: His white count is normal at 8.1, it was elevated when he came in. His hemoglobin is 11.4. His PT is elevated I would assume because of his cirrhosis. His creatinine is 0.63. His urine on the showed 7 to 10 red cells, 11-20 white cells, no bacteria, few calcium oxalate crystals. He has not had any upper tract study. He had some opiates detected on toxicology. His hepatitis evaluation for B and C were negative. He has had a CT of the chest done, this looks like it was done to rule out a PE or perhaps to rule out a dissection. This gets worse. I have reviewed this and it certainly shows ascites in his belly and it does not really show his kidneys at all. PHYSICAL EXAMINATION: ABDOMEN: His abdomen is distended. It certainly is consistent with cirrhosis and ascites. His bladder does not appear to be distended. He is not circumcised. There is no phimosis. He has a fair amount of foreskin edema and scrotal edema. The testicles are descended without mass or tenderness. He has a Goldman catheter and looks like about a 16-Italian coude and the balloon was not inflated and it is draining maybe 50 mL of kind of a bilirubin stained colored urine. There is no blood at the meatus or blood in the urine. I placed K-Y jelly around this catheter and placed back into the bladder, went in easily. We inflated the balloon with 10 mL of water. We went ahead and flushed the bladder with about 180 mL of water and flushes easily and drained easily so the catheter was clear in the bladder. I think most likely what the bladder scan was reading was ascites fluid and that is why read over a liter to be present and I do not think he has actually had a distended bladder. His decreased urine output is probably related to his liver disease. So for the time being, a catheter be left in until it is not needed for monitoring, but once it is not needed for monitoring, it should be removed. Because of scrotal and penile edema, it should have these elevated on some folded towels. This was discussed with the nursing staff. On one final review of his labs it shows that he did have a urine culture set up when he came in and that showed no growth at 36 hours. Job ID: [id number]
--- NOTE | 2019-01-26 17:28 | PRG ---
DATE OF SERVICE: 01/26/2019 SUBJECTIVE: Davon Rivas is not complaining of anything new today. He had an abdominal ultrasound today that showed ascites. This is apparent on exam. He had significant erosive esophagitis with a distal ulcer. Cardiothoracic surgery was consulted to consider placement of a filter. His encephalopathy has resolved. His lungs are clear. Heart regular rhythm. Abdomen soft and protuberant with an exam consistent with ascites. I told he is tentatively on the schedule for an inferior vena cava filter. His hemoglobin is stable at 11.9 on the , 11.4 today. Electrolytes are unremarkable. IMPRESSION: 1. Deep venous thrombosis with pulmonary emboli for inferior vena cava filter. 2. Cirrhosis with ascites, but surprisingly with intact liver synthetic function for a clotting factor. We will continue to follow. [facility] [id number] [facility]
[2019-01-26] MEDS ORDERED: Fentanyl 100 MCG/2 ML VIAL ONE (17:37)
[2019-01-26] MEDS ORDERED: Midazolam HCl 2 mg/2 ml Vial ONE (17:37)
[2019-01-26] MEDS ORDERED: Famotidine/PF 20 mg/2ml Vial ONE (17:39)
--- NOTE | 2019-01-26 17:53 | PDOC.PN ---
- Subjective Encounter Start Date: 01/26/19 Encounter Start Time: 12:00 Subjective: pt up in bed does not complain of any pain -: pt's urine output low, bladder scan indicated 1000ml - Objective Resuscitation Status - Order Detail: 01/24/19 02:03 Resuscitation Status Routine Co-Sign Provider: Resuscitation Status: FULL: Full Resuscitation Vital Signs & Weight: Vital Signs (12 hours) Temp Pulse Resp Pulse Ox 01/26/19 15:17 98.9 F 01/26/19 14:06 96 18 92 L 01/26/19 11:45 98.8 F 01/26/19 11:01 94 23 H 97 01/26/19 07:54 95 01/26/19 07:51 82 16 93 L 01/26/19 07:07 99.5 F Weight Weight 196 lb 3.2 oz Most Recent Monitor Data Heart Rate from ECG 110 NIBP 109/63 NIBP BP-Mean 78 Respiration from ECG 22 SpO2 91 I&O: 01/25/19 01/26/19 01/27/19 06:59 06:59 06:59 Intake Total 3075 4018 Output Total 975 675 Balance 2100 3343 Result Diagrams: 01/26/19 13:07 01/26/19 13:07 Additional Labs: Accuchecks 01/26/19 01/26/19 01/26/19 16:37 10:39 06:07 POC Glucose 125 H 169 H 138 H 01/25/19 19:59 POC Glucose 142 H Phys Exam - Physical Examination Neck: no nodes, no JVD, supple, full ROM Respiratory: wheezing present Cardiovascular: RRR, no significant murmur, no rub, gallop, irregular Gastrointestinal: soft, positive bowel sounds obse Musculoskeletal: no edema, pulses present, edema present Neurological: non-focal, normal sensation, moves all 4 limbs Dx/Plan (1) Encephalopathy acute Code(s): G93.40 - ENCEPHALOPATHY, UNSPECIFIED Status: Acute (2) Upper GI bleed Code(s): K92.2 - GASTROINTESTINAL HEMORRHAGE, UNSPECIFIED Status: Acute (3) Cirrhosis Code(s): K74.60 - UNSPECIFIED CIRRHOSIS OF LIVER Status: Acute (4) Dvt femoral (deep venous thrombosis) Code(s): I82.419 - ACUTE EMBOLISM AND THROMBOSIS OF UNSPECIFIED FEMORAL VEIN Status: Acute - Plan pt has new dvt to right femoral vein, due to pt's recent bleed -: unable to anticoagulate. will consult CV for ivc filter. -: low urine output, bladder scan >1L, ascites vs urinary retention -: appreciate urology assistance, bladder scan is ascites. -: will continue ppi. * . Review of Systems - Review of Systems Respiratory: negative: Cough, Dry, Shortness of Breath, Hemoptysis, SOB with Excertion, Pleuritic Pain, Sputum, Wheezing Cardiovascular: negative: chest pain, palpitations, orthopnea, paroxysmal nocturnal dyspnea, edema, light headedness, other Gastrointestinal: negative: Nausea, Vomiting, Abdominal Pain, Diarrhea, Constipation, Melena, Hematochezia, Other - Medications/Allergies Allergies/Adverse Reactions: Allergies Allergy/AdvReac Type Severity Reaction Status Date / Time adhesive Allergy Verified 01/24/19 03:21 iodine Allergy Verified 01/24/19 03:21 Penicillins Allergy Hives Verified 01/24/19 03:21 povidone-iodine Allergy Verified 01/24/19 03:21 [From Betadine] soap [From Betadine] Allergy Verified 01/24/19 03:21 Medications: Current Medications Albuterol/Ipratropium (Duoneb) 3 ml NEB [id number] [facility] Last Admin: 01/26/19 14:06 Dose: 3 ml Albuterol/Ipratropium (Duoneb) 3 ml NEB [id number] PRN PRN Reason: SOB &/or Wheezing Diphenhydramine HCl (Benadryl) 50 mg IVP WILLCALL [facility] Last Admin: 01/26/19 17:10 Dose: 50 mg Hydralazine HCl (Apresoline) 10 mg SLOW IVP Q4H PRN PRN Reason: SBP Greater Than 180 Lactated Ringer's (Lactated Ringer's) 1,000 mls @ 125 mls/hr IV .Q8H [facility] Last Admin: 01/26/19 11:17 Dose: 1,000 mls Ceftriaxone Sodium 1 gm/ (Sodium Chloride) 100 mls @ 200 mls/hr IVPB Q24HR [facility] Last Admin: 01/26/19 09:19 Dose: 100 mls Melatonin (Melatonin) 6 mg PO HS PRN PRN Reason: Insomnia Last Admin: 01/25/19 20:18 Dose: 6 mg Methylprednisolone Sodium Succinate (Solu-Medrol) 40 mg IVP WILLCALL [facility] Last Admin: 01/26/19 17:10 Dose: 40 mg Ondansetron HCl (Zofran) 4 mg IVP Q6H PRN PRN Reason: Nausea/Vomiting Pantoprazole Sodium (Protonix) 40 mg IVP Q12HR [facility] Last Admin: 01/26/19 09:19 Dose: 40 mg Sodium Chloride (Flush - Normal Saline) 10 ml IVF Q12HR PRN PRN Reason: Saline Flush Sodium Chloride (Flush - Normal Saline) 10 ml IVF PRN PRN PRN Reason: Saline Flush Sodium Chloride (Normal Saline Pf) 10 ml IV Q12HR [facility] Last Admin: 01/26/19 09:19 Dose: 10 ml Tamsulosin HCl (Flomax) 0.4 mg PO DAILY [facility] Last Admin: 01/26/19 09:19 Dose: 0.4 mg
--- NOTE | 2019-01-26 22:03 | CON ---
DATE OF CONSULTATION: 01/26/2019 PRIMARY CARE PHYSICIAN: Judy Yousif. OTHER CONSULTING PHYSICIANS: Dr. Bhat and Dr. Sparrow. CHIEF COMPLAINT: Deep venous thrombosis. HISTORY OF PRESENT ILLNESS: The patient is a 73-year-old man with cirrhosis and a previous right [id number] amputation, who recently underwent surgery on his left shoulder. He was found with altered state of consciousness in a puddle of what appeared to represent bloody emesis. While in the hospital, after arrival apparently had several additional episodes of hematemesis. Part of the screening lab work included D-dimer, which was positive and there was some suggestion of the distal segmental or subsegmental defect in the pulmonary artery of the right lower lobe. He had an initial head CT to evaluate his altered mental status and head CT including a repeat scan had some equivocal findings worrisome for small intracranial hemorrhage. Venous Doppler showed partially occluded thrombus in the superficial femoral vein on the right side, but no DVT on the left. The patient's hemodynamics have remained stable. His laboratory exam showed minimal drift in his hemoglobin. EGD showed some esophagitis with an esophageal ulcer. PAST MEDICAL HISTORY: Significant for hypertension, cirrhosis attributed to alcohol abuse, peripheral vascular disease. He has had a previous right magxu-smh-[id number] amputation. MEDICATIONS: Listed as; 1. Lisinopril 20 mg b.i.d. 2. Atenolol 50 mg b.i.d. 3. Baby aspirin a day. 4. Flomax 1 a day. 5. Multivitamin a day. ALLERGIES: HE REPORTS ALLERGIES TO IODINE AND PENICILLIN. REVIEW OF SYSTEMS: Negative for any chest pain or shortness of breath. PHYSICAL EXAMINATION: GENERAL: The patient is a chronically ill appearing man with somewhat rattly cough. VITAL SIGNS: Heart rate 77, blood pressure 151/70, temperature is 97.7, and room air O2 saturations are 98%. CHEST: He has distant breath sounds. Regular rate and rhythm. ABDOMEN: Moderately obese. He has a right AKA with no swelling. LABORATORY EXAM: Shows hemoglobin 11.4 and platelets 165,000. Potassium is 3.9, BUN 19, and creatinine 0.63. PT is 14.9 with an INR 1.2. His chest x-ray is prominent, marked lung markings. On his CT scan of his chest, I did not appreciate the filling defect referenced in the report. He has a CT scan of the abdomen and pelvis from 2016 that showed the left and right renal veins at the level of the inferior margin of L1 with the right vein coming in more posteriorly and the left vein more anteriorly, at which point, the vena cava appeared to be about 15 or 16 mm in AP diameter and about 22 mm in transverse diameter. IMPRESSION AND RECOMMENDATIONS: Possible pulmonary embolism. Certainly deep venous thrombosis with contraindications to anticoagulation. I think vena cava filter placement is a reasonable consideration and after discussing the potential risks of filter placement including perforation and migration, he agrees to proceed. Job ID: [id number]
--- NOTE | 2019-01-27 01:05 | OP ---
DATE OF PROCEDURE: 01/26/2019 PROCEDURE PERFORMED: Trapease inferior vena cava filter placement with ultrasonographic guidance and inferior vena cavography. PREOPERATIVE DIAGNOSES: Deep venous thrombosis, possible pulmonary embolus, contraindication to anticoagulation. POSTOPERATIVE DIAGNOSES: Deep venous thrombosis, possible pulmonary embolus, contraindication to anticoagulation. ANESTHESIA: 1% lidocaine local anesthesia with intravenous sedation consisting of 1 mg of Versed and 25 mcg of fentanyl. INDICATIONS: The patient is a 73-year-old cirrhotic man who was found in a puddle of hematemesis with an altered level of consciousness. Screening labs and imaging studies were worrisome for small intracranial hemorrhage and pulmonary embolism. He had partially occlusive thrombus in his right lower extremity on venous Doppler. EGD showed esophagitis and ulceration. Vena cava filter is now being placed in light of his contraindication anticoagulation. FINDINGS: The renal veins came into the vena cava at about the level of the bottom of L1. The tip of the filter was placed at the top of L2. Total contrast was 5 mL of Isovue-370. Total fluoroscopy time was 5.8 minute. NARRATIVE REPORT: The patient in light of his purported contrast allergy causing a rash, he was premedicated with Solu-Medrol, Benadryl, and Pepcid. He was consented and taken to the laboratory secretary. On the laboratory secretary table, he was somewhat uncomfortable and had a little bit of difficulty voiding stool. He was given IV sedation consisting of 1 mg of Versed and 25 mcg of fentanyl. His groins were prepped and draped in sterile fashion. An ultrasound was used to identify the renal vasculature and to confirm compressibility of the common femoral vein that was used to facilitate localization of the vena puncture just medial to the palpable femoral pulse. A guidewire was placed and intravenous positioning was confirmed under fluoroscopy. An introducer sheath was placed over the wire and advanced up to the level of the bottom of L1. Initially, attempts were made to probe the orifices of the renal veins. Using an angled catheter and guidewire in an attempt to avoid use of any contrast as the previous CT scan from few years ago had demonstrated that the vena cava was of reasonable size and that the renal veins came into the vena cava opposite to each other about the level of the bottom of L1. While there was some suggestion of intubating the left renal vein, it was not clear and several attempts at intubating the right renal vein were clearly unsuccessful. It was opted to proceed with contrast venography, 10 mL of a 50:50 mixture of contrast was injected and this successfully demonstrated the confluence of the left renal vein with the vena cava. It was indeed at the level of the bottom of the L1. Repeated attempts that passing a wire into the renal veins were made, and this time, both veins could be intubated, after confirming their locations, the tip of the sheath was withdrawn to the top of L2 and the filter was advanced. When it was advanced to the level of the top of L2, the sheath was withdrawn to deploy the sheath and the sheath was removed. Pressure was held with the use of direct pressure, and he has returned to his room in good condition. Job ID: [id number]
[2019-01-27] MEDS: Melatonin 3 MG TAB PO PRN (01:44)
[2019-01-27] MEDS: Lactated Ringer's 1,000 ML IV SCH ×2 (03:03→12:15)
[2019-01-27 05:16] LABS: Hep B Surface AG-Rflx Sendout Negative (Negative); Hepatitis B Core IgM AB Negative (Negative); Hepatitis B Core Total Negative (Negative); Hepatitis B Surface AB-Sendout Non Reactive (.)
[2019-01-27 08:11] LABS: Hemoglobin 11.4 g/dL (14.0-18.0); Mean Corpuscular HGB CONC 32.6 g/dL (32.0-36.0); Mean Corpuscular Hemoglobin 33.3 pg (27.0-31.0); Mean Platelet Volume 8.8 fL (7.4-10.4); Platelet Count 173 thou/uL (130-400); RBC Distribution Width 13.5 % (11.5-14.5); Red Blood Cell (RBC) Count 3.41 mill/uL (4.70-6.10); White Blood Cell (WBC) Count 7.5 thou/uL (4.8-10.8)
[2019-01-27 08:28] LABS: Anion Gap 11 mmol/L (10-20); BUN (Urea Nitrogen) 19 mg/dL (8.4-25.7); Calc. Creatinine Clearance 128 mL/min (70-130); Calcium 8.4 mg/dL (7.8-10.44); Carbon Dioxide 26 mmol/L (23-31); Chloride 109 mmol/L (98-107); Estimated GFR-MDRD Greater than 90; Glucose 133 mg/dL (83-110); Sodium 142 mmol/L (136-145)
[2019-01-27 08:33] LABS: Band 13 % (5-11); Large Platelets SLIGHT; Lymphocytes 10 % (21-51); MDiff Complete? YES; Monocytes 4 % (0-10); Neutrophil 71 % (42-75); Platelet Morphology Comment Appears Adequate; Polychromasia SLIGHT = 2-3 cells (100X) (0-2/hpf); Reactive Lymphocytes 2 % (0-10)
[2019-01-27] MEDS: cefTRIAXone\\ROCEPHIN 1 GM in Sodium Chloride 0.9% 100 ML IVPB SCH (08:55)
[2019-01-27] MEDS: Sodium Chloride 0.9% (PF) 10 ML VIAL IV SCH ×2 (08:55→22:48)
[2019-01-27] MEDS: Pantoprazole 40 MG VIAL IVP SCH ×2 (08:55→22:48)
[2019-01-27] MEDS: Tamsulosin HCl 0.4 MG CAP PO SCH (08:56)
--- NOTE | 2019-01-27 09:45 | PRG ---
DATE OF SERVICE: 01/27/2019 SUBJECTIVE: Ms. Davon Rivas is awakened from sleep. He is in no distress this morning. He had an inferior vena cava filter placed yesterday. OBJECTIVE: VITAL SIGNS: He is afebrile. Heart rate is 83, respiratory rates in the 20s, oximetry is 94% on 3 L, and blood pressure 144/72. LUNGS: Clear. HEART: Regular rhythm. ABDOMEN: Soft and nontender. EXTREMITIES: Both lower extremities are warm. LABORATORY DATA: White count 7.5, hemoglobin 11.4, and platelets 173. Sodium 142, potassium 4, chloride 109, bicarb 26, BUN 19, and creatinine 0.64. IMPRESSION: 1. Erosive esophagitis. 2. Deep venous thrombosis. 3. Pulmonary embolism. 4. Cirrhosis. 5. Encephalopathy, on presentation, that is resolved. Overall, he appears stable. 6. In my opinion, he could be transferred out of the monitor bed. Job ID: [id number]
--- NOTE | 2019-01-27 12:30 | PDOC.PN ---
- Subjective Encounter Start Date: 01/27/19 Encounter Start Time: 10:30 -: old records requested/rev Patient seen and examined. No new complaints. No overnight events - Objective Resuscitation Status - Order Detail: 01/24/19 02:03 Resuscitation Status Routine Co-Sign Provider: Resuscitation Status: FULL: Full Resuscitation MAR Reviewed: Yes Vital Signs & Weight: Vital Signs (12 hours) Temp Pulse Resp Pulse Ox 01/27/19 11:31 86 23 H 93 L 01/27/19 11:19 98.9 F 01/27/19 08:00 83 31 H 94 L 01/27/19 07:26 94 L 01/27/19 07:10 99.0 F 01/27/19 04:13 97.6 F Weight Weight 200 lb 1.6 oz Most Recent Monitor Data Heart Rate from ECG 85 NIBP 141/70 NIBP BP-Mean 93 Respiration from ECG 24 SpO2 92 I&O: 01/26/19 01/27/19 01/28/19 06:59 06:59 06:59 Intake Total 4018 760 Output Total 675 500 Balance 3343 260 Result Diagrams: 01/27/19 07:55 01/27/19 07:55 Additional Labs: Accuchecks 01/27/19 01/27/19 01/26/19 10:36 06:05 19:53 POC Glucose 134 H 172 H 130 H 01/26/19 16:37 POC Glucose 125 H EKG Reviewed by me: Yes Phys Exam - Physical Examination Constitutional: NAD HEENT: PERRLA, moist MMs, sclera anicteric Neck: no JVD, supple Respiratory: no wheezing, no rales, no rhonchi Cardiovascular: RRR, no significant murmur, no rub Gastrointestinal: soft, non-tender ascites+ right BKA Lymphatic: no nodes Skin: no rash, normal turgor Dx/Plan (1) Acute respiratory failure with hypoxia Code(s): J96.01 - ACUTE RESPIRATORY FAILURE WITH HYPOXIA Status: Acute (2) Acute urinary retention Code(s): R33.8 - OTHER RETENTION OF URINE Status: Acute (3) Dvt femoral (deep venous thrombosis) Code(s): I82.419 - ACUTE EMBOLISM AND THROMBOSIS OF UNSPECIFIED FEMORAL VEIN Status: Acute (4) Encephalopathy acute Code(s): G93.40 - ENCEPHALOPATHY, UNSPECIFIED Status: Acute (5) Pulmonary embolism Code(s): I26.99 - OTHER PULMONARY EMBOLISM WITHOUT ACUTE COR PULMONALE Status : Acute (6) SDH (subdural hematoma) Code(s): S06.5X9A - TRAUM SUBDR HEM W LOC OF UNSP DURATION, INIT Status: Acute (7) Status post total shoulder arthroplasty Code(s): Z96.619 - PRESENCE OF UNSPECIFIED ARTIFICIAL SHOULDER JOINT Status: Acute Qualifiers: Laterality: left Qualified Code(s): Z96.612 - Presence of left artificial shoulder joint (8) UTI (urinary tract infection) Status: Acute (9) Upper GI bleed Code(s): K92.2 - GASTROINTESTINAL HEMORRHAGE, UNSPECIFIED Status: Acute (10) Alcohol abuse Code(s): F10.10 - ALCOHOL ABUSE, UNCOMPLICATED Status: Chronic (11) Cirrhosis Code(s): K74.60 - UNSPECIFIED CIRRHOSIS OF LIVER Status: Chronic (12) Hypertension Code(s): I10 - ESSENTIAL (PRIMARY) HYPERTENSION Status: Chronic (13) Macrocytic anemia Code(s): D53.9 - NUTRITIONAL ANEMIA, UNSPECIFIED Status: Chronic - Plan cont current plan of care, social work administrator * transfer to [facility] * medication reviewed as below * symptomatic treatment * supportive care * palliative care consult. Review of Systems - Review of Systems Other: unable to review due to AMS - Medications/Allergies Allergies/Adverse Reactions: Allergies Allergy/AdvReac Type Severity Reaction Status Date / Time adhesive Allergy Verified 01/24/19 03:21 iodine Allergy Verified 01/24/19 03:21 Penicillins Allergy Hives Verified 01/24/19 03:21 povidone-iodine Allergy Verified 01/24/19 03:21 [From Betadine] soap [From Betadine] Allergy Verified 01/24/19 03:21 Medications: Current Medications Albuterol/Ipratropium (Duoneb) 3 ml NEB [id number] [facility] Last Admin: 01/27/19 11:31 Dose: 3 ml Albuterol/Ipratropium (Duoneb) 3 ml NEB [id number] PRN PRN Reason: SOB &/or Wheezing Diphenhydramine HCl (Benadryl) 50 mg IVP WILLCALL [facility] Last Admin: 01/26/19 17:10 Dose: 50 mg Hydralazine HCl (Apresoline) 10 mg SLOW IVP Q4H PRN PRN Reason: SBP Greater Than 180 Lactated Ringer's (Lactated Ringer's) 1,000 mls @ 125 mls/hr IV .Q8H [facility] Last Admin: 01/27/19 12:15 Dose: Not Given Ceftriaxone Sodium 1 gm/ (Sodium Chloride) 100 mls @ 200 mls/hr IVPB Q24HR [facility] Last Admin: 01/27/19 08:55 Dose: 100 mls Melatonin (Melatonin) 6 mg PO HS PRN PRN Reason: Insomnia Last Admin: 01/27/19 01:44 Dose: 6 mg Methylprednisolone Sodium Succinate (Solu-Medrol) 40 mg IVP WILLCALL [facility] Last Admin: 01/26/19 17:10 Dose: 40 mg Ondansetron HCl (Zofran) 4 mg IVP Q6H PRN PRN Reason: Nausea/Vomiting Pantoprazole Sodium (Protonix) 40 mg IVP Q12HR [facility] Last Admin: 01/27/19 08:55 Dose: 40 mg Sodium Chloride (Flush - Normal Saline) 10 ml IVF Q12HR PRN PRN Reason: Saline Flush Sodium Chloride (Flush - Normal Saline) 10 ml IVF PRN PRN PRN Reason: Saline Flush Sodium Chloride (Normal Saline Pf) 10 ml IV Q12HR [facility] Last Admin: 01/27/19 08:55 Dose: 10 ml Tamsulosin HCl (Flomax) 0.4 mg PO DAILY [facility] Last Admin: 01/27/19 08:56 Dose: 0.4 mg
[2019-01-28] MEDS: Lactated Ringer's 1,000 ML IV SCH ×2 (07:46→11:12)
[2019-01-28] MEDS: Pantoprazole 40 MG VIAL IVP SCH ×2 (09:28→20:41)
[2019-01-28] MEDS: Sodium Chloride 0.9% (PF) 10 ML VIAL IV SCH ×2 (09:28→20:40)
[2019-01-28] MEDS: Tamsulosin HCl 0.4 MG CAP PO SCH (09:28)
[2019-01-28] MEDS: cefTRIAXone\\ROCEPHIN 1 GM in Sodium Chloride 0.9% 100 ML IVPB SCH (09:28)
--- NOTE | 2019-01-28 10:21 | PRG ---
DATE OF SERVICE: 01/28/2019 SUBJECTIVE: The patient is seen and examined at the bedside. He feels relatively well, but he complains about the scrotal swelling. His appetite is fair. OBJECTIVE: VITAL SIGNS: Blood pressure is 144/72, pulse is 86, respiratory rate is 28, temperature 98.7, O2 saturation is 94% on room air. HEENT: His head is atraumatic and normocephalic. Eyes, PERRLA. Sclerae are nonicteric. Oral mucosa is somewhat dry. NECK: Supple. LUNGS: Breath sounds diminished at both bases with few crackles bilaterally. HEART: S1, S2 normal. ABDOMEN: Soft, distended, nontender. Bowel sounds are present. No organomegaly. Ascites present. EXTREMITIES: Right [id number] amputee. Left lower extremity with approximately 1 to 2+ peripheral edema. Scrotum is swollen. Goldman catheter is in. NEUROLOGIC: He is alert and oriented x3. There are no any motor deficits. Cranial nerves are intact. LABORATORY DATA: None today. Microbiology; negative bacterial culture, negative urine culture. IMPRESSION: 1. Encephalopathy, acute. This is fluctuating on admission, was present and improved. Apparently, he had some hallucinations yesterday. 2. Esophageal bleeding from erosive esophagitis and a large ulceration of the distal esophagus and esophagitis. 3. Right femoral vein thrombosis, status post IV cava filter placement. 4. Pulmonary embolism. 5. Cirrhosis. 6. Encephalopathy. 7. Hiatal hernia. 8. Scrotal swelling, I believe this is mostly related to his ascites and deep venous thrombosis. 9. Acute urinary retention. 10. Subdural hematoma. 11. Status post total shoulder arthroplasty. 12. Still alcohol user. 13. Liver cirrhosis. 14. Hypertension. PLAN: Plan is to set up the paracentesis with Radiology, transfer him to tele. We are awaiting for the bed. Continue supportive care. I believe that his condition significantly will improve after the top and Dr. Raymond is going to follow up on this patient today. Job ID: [id number]
[2019-01-28 10:39] LABS: ALT (SGPT) 30 U/L (8-55); AST (SGOT) 31 U/L (5-34); Albumin 2.6 g/dL (3.4-4.8); Alkaline Phosphatase 255 U/L (40-150); Anion Gap 12 mmol/L (10-20); BUN (Urea Nitrogen) 18 mg/dL (8.4-25.7); Bilirubin, Total 1.2 mg/dL (0.2-1.2); Calc. Creatinine Clearance 122 mL/min (70-130); Calcium 8.3 mg/dL (7.8-10.44); Carbon Dioxide 25 mmol/L (23-31); Chloride 109 mmol/L (98-107); Estimated GFR-MDRD Greater than 90; Globulin 1.8 g/dL (2.4-3.5); Glucose 131 mg/dL (83-110); Potassium 3.6 mmol/L (3.5-5.1); Protein, Total 4.4 g/dL (5.8-8.1); Sodium 142 mmol/L (136-145)
--- NOTE | 2019-01-28 11:53 | ULT ---
SONOGRAPHIC GUIDED PARACENTESIS: Date: 01/28/19 HISTORY: Tense ascites. FINDINGS: After explaining the procedure and answering all questions, sonographic survey shows large amount of free fluid. Sterile technique, buffered local anesthesia, sonographic guidance, and a right lower daniella drant approach were used to carefully advance a 19 gauge Yueh needle into the free fluid. Catheter wa s left to drain a total volume of 4.0 liters of slightly cloudy yellow liquid. A portion was sent to laboratory for analysis. Catheter was removed. Small amount of fluid remains. Patient tolerated the p rocedure well. IMPRESSION: Technically successful sonographic guided paracentesis. POS: [facility]
[2019-01-28 11:56] LABS: BF Color Yellow; Body Fluid Source Ascites Body Fluid; Clarity Clear (Clear)
[2019-01-28 12:15] LABS: BF RBC Count - Manual 555 /cumm; BF WBC/Nonhematics Ct. - Manua 150 /cumm
[2019-01-28 12:19] LABS: BF Segmented Neutrophils 30 %; Cell Count Non Hematic 26 %; Lymphocytes 44 %
[2019-01-28] MEDS ORDERED: Potassium Chloride 20 MEQ TAB PO SCH (14:00)
--- NOTE | 2019-01-28 14:01 | PRG ---
DATE OF SERVICE: 01/28/2019 SUBJECTIVE: Mr. Rivas was seen actually earlier this admission by Dr. Sparrow, performed upper endoscopy, and found a large ulcer in his esophagus. Dr. Ornelas called me and asked me to re-evaluate him today as he has had worsening ascites. He has subsequently had a ultrasound-guided paracentesis and fluid studies have been ordered. In talking with Mr. Rivas, he does not know of a prior history of cirrhosis. He was noted to have a cirrhotic-appearing liver on his CT angio of his chest when he was admitted for shortness of breath. He was very confused at that time and had a normal ammonia. He states that he does not drink alcohol, but H and P notes he does. He has had a toxicology screen at this hospital several years ago, at which time he had an elevated plasma alcohol, but that was about 3 years ago. He is vague on whether he drinks at all. At this point in time, he is a little bit confused. Otherwise, in his hospitalization, he has had a IVC filter placed as he was noted to have a DVT in the deep veins of the right leg. There are no DVTs in the left side, although there was edema noted on that study. Reviewing his records, other concerning features were a right renal mass on CAT scan in 2016 that was concerning for malignancy. The patient denies having surgery. He has no scars and he denies knowing about this, again though he is a very poor historian today. In talking with the nurses, he has had no overt signs of bleeding. He is eating. MEDICATIONS: 1. DuoNeb. 2. Rocephin. 3. Benadryl. 4. Hydralazine. 5. Lactated Ringers at 125 an hour. 6. Melatonin and prednisone, that was a few days ago, one time dose. 7. Zofran p.r.n. 8. Protonix IV q.12 hours. 9. Tamsulosin. PHYSICAL EXAMINATION: VITAL SIGNS: Temperature is 98, T-max was 100 on the 27th, heart rate is 81, and blood pressure 146/61. GENERAL: He is resting in bed. He has muscle wasting. HEENT: I do not see any overt scleral icterus. Oropharynx is without lesions. LUNGS: Clear. ABDOMEN: Has a fluid wave, but no overt shifting dullness. There is no palpable hepatomegaly. EXTREMITIES: Reveal right AKA. Left lower leg has edema. There is palmar erythema. There is no overt asterixis. LABORATORY STUDIES: White count yesterday was 7.5, hemoglobin was 11.4, and platelet count was 173. His platelets were 126 on admission. INR was 1.2 on the . Last comprehensive metabolic profile was on the . Sodium was 140, potassium 3.6, BUN and creatinine were 18 and 0.6. His total protein was 1.8. AST was 42, ALT 32, and alkaline phosphatase was 352. Paracentesis this morning showed 150 white blood cells, 550 red blood cells, and total protein less than 1. Other studies pending. Toxicology on admission was negative except for serum opiates, probably it was given in the ER. Serology negative for hepatitis A, B, and C. ASSESSMENT: 1. Ascites, likely related to cirrhosis. We will wait for his calculated serum ascitic albumin gradient. There are no signs of spontaneous bacterial peritonitis at this time. Cytology had been told as sent as well. 2. Esophageal ulcer, on proton pump inhibitor, with no signs of bleeding at this time. 3. Deep vein thrombosis, status post inferior vena cava filter. RECOMMENDATIONS: I am going to finish his evaluation for cirrhosis serologically, rule out hemochromatosis and autoimmune liver diseases. He needs an alpha-fetoprotein. He needs full imaging of the liver. I need imaging of his kidney as there was a concern for renal mass back in 2016. Progress will best be on the CAT scan. I would wait and get his renal function first, though he has had nothing checked in several days. I will talk to his nurse to see if we can get him off his lactated Ringer's as it is going to make him get more ascites. He is to be on sodium restricted diet. He has multivitamin, thiamine, and folate for his questionable history of alcohol use and confusion. Job ID: [id number]
--- NOTE | 2019-01-28 14:41 | PRG ---
DATE OF SERVICE: 01/28/2019 SERVICE: Pulmonary Medicine. INTERVAL HISTORY: The patient is doing fine from respiratory standpoint. He is breathing comfortably. There has been no interval change to his condition. He denies any chest pain, fevers, chills, or shortness of breath. He ended up getting a paracentesis today. He has less abdominal distention and is actually feeling much more comfortable. PHYSICAL EXAMINATION: VITAL SIGNS: Afebrile, pulse 81, blood pressure 146/61, respirations 24, and saturation 93% on room air. GENERAL: The patient is awake and alert, in no apparent distress. LUNGS: Decent air entry. Dependent crackles are minimal. There is no prolonged expiratory phase or wheezing present. HEART: Normal rate and regular. ABDOMEN: Soft. Nontender, nondistended. Bowel sounds are positive. MUSCULOSKELETAL: No cyanosis or clubbing. The right lower extremity is surgically absent. The left lower extremity has 2 to 3+ edema. : Goldman catheter in place. NEUROLOGIC: Grossly nonfocal. LABORATORY DATA: Basic metabolic profile and liver function studies are essentially unremarkable except for alkaline phosphatase that is elevated at 255, downtrending. Albumin is 2.6. Potassium is at the lower limits of normal at 3.6. Sodium is stable at 142. Blood cultures x2. Urine cultures are unremarkable. ASSESSMENT: 1. Erosive esophagitis. 2. Deep venous thrombosis. 3. Acute pulmonary embolism. 4. Cirrhosis. 5. Questionable SDH. DISCUSSION AND PLAN: I will replace his potassium. He remained stable for transition out of the ICU to the telemetry unit. Pulmonary will continue to follow in this location, but when he arrives on the floor, we will sign off. Please call with additional questions or concerns through time. Job ID: [id number] [facility]
[2019-01-28] MEDS: Albumin 25% 25 GM/100 ML BOT IVPB SCH (17:49)
[2019-01-28] MEDS: Melatonin 3 MG TAB PO PRN (20:40)
[2019-01-28] MEDS: Atenolol 50 MG TAB PO SCH (20:40)
[2019-01-28] MEDS: Ondansetron PF 4 MG/2 ML Vial IVP PRN (22:30)
[2019-01-29] MEDS: Acetaminophen 325 MG TAB PO PRN (02:03)
[2019-01-29 06:35] LABS: ALT (SGPT) 31 U/L (8-55); AST (SGOT) 39 U/L (5-34); Albumin 2.5 g/dL (3.4-4.8); Alkaline Phosphatase 268 U/L (40-150); Anion Gap 9 mmol/L (10-20); BUN (Urea Nitrogen) 16 mg/dL (8.4-25.7); Bilirubin, Total 1.2 mg/dL (0.2-1.2); Calc. Creatinine Clearance 133 mL/min (70-130); Calcium 8.2 mg/dL (7.8-10.44); Carbon Dioxide 25 mmol/L (23-31); Chloride 112 mmol/L (98-107); Estimated GFR-MDRD Greater than 90; Globulin 1.8 g/dL (2.4-3.5); Glucose 126 mg/dL (83-110); Iron 25 ug/dL (65-175); Iron Binding Capacity, Total 124 mcg/dL (261-462); Magnesium 1.7 mg/dL (1.6-2.6); Phosphorus 2.5 mg/dL (2.3-4.7); Potassium 4.2 mmol/L (3.5-5.1); Protein, Total 4.3 g/dL (5.8-8.1); Sodium 142 mmol/L (136-145)
[2019-01-29] MEDS: cefTRIAXone\\ROCEPHIN 1 GM in Sodium Chloride 0.9% 100 ML IVPB SCH (09:08)
[2019-01-29] MEDS: Multivitamin W/ Minerals 1 TAB PO SCH (09:08)
[2019-01-29] MEDS: Tamsulosin HCl 0.4 MG CAP PO SCH (09:08)
[2019-01-29] MEDS: Thiamine 100 MG TAB PO SCH (09:08)
[2019-01-29] MEDS: Atenolol 50 MG TAB PO SCH ×2 (09:08→20:35)
[2019-01-29] MEDS: Multivit, Therapeutic 1 TAB PO SCH (09:09)
[2019-01-29] MEDS: Pantoprazole 40 MG VIAL IVP SCH ×2 (09:10→20:37)
[2019-01-29] MEDS: Sodium Chloride 0.9% (PF) 10 ML VIAL IV SCH ×2 (09:10→20:43)
[2019-01-29] MEDS ORDERED: methylPREDNISolone Sod Succ 40 MG VIAL IVP SCH (11:27)
--- NOTE | 2019-01-29 11:52 | PRG ---
DATE OF SERVICE: 01/29/2019 SUBJECTIVE: The patient is seen and examined at the bedside. He feels significantly better after the abdominal paracentesis done yesterday. He tells me that he lost approximately 65 pounds in 10 months. OBJECTIVE: VITAL SIGNS: Blood pressure is 101/83, pulse is 63, respiratory rate is 24, O2 saturation is 95% on room air. GENERAL: He looks emaciated and malnourished. HEENT: His head is atraumatic and normocephalic. His pupils are responding to light properly. Sclerae are nonicteric. Oral mucosa is moist. NECK: Supple. CHEST/LUNGS: Breath sounds diminished at both bases. HEART: S1, S2 normal. No S3. No S4. ABDOMEN: Distended. Bowel sounds present sluggish. There is ascites present in the abdomen. No guarding. No masses. No pain on palpation. EXTREMITIES: Left shoulder with the dressing, status post left shoulder surgery. Right lower extremity [id number] amputee. Left lower extremity, 3+ peripheral edema. NEUROLOGICAL: He is alert and oriented x4. There are no any motor deficits present. LABORATORY DATA: Labs showed sodium of 142, potassium 4.2, chloride 112, CO2 of 25, BUN 16, creatinine 0.6. Glycemia is ranging from 106 to 150. Iron 25, total iron-binding capacity 124, ferritin 411.8, AST 39, alkaline phosphatase 268, albumin 2.5, globulin 1.8, IgG total 415. Abdominal fluid results, color yellow, clear, wbc's 150, rbc's 555, 30% of neutrophils, 44 of lymphocytes. Differential is pending. Non-hematological percent is 26. Total protein less than 1.0. LDH 37. IMPRESSION: 1. Encephalopathy, acute, improved. 2. Esophageal bleeding from erosive esophagitis and a large ulceration of the distal esophagus and esophagitis. 3. Right femoral vein thrombosis, status post IV cava filter placement. 4. Pulmonary embolism. 5. Cirrhosis. 6. Encephalopathy. 7. Hiatal hernia. 8. Scrotal swelling, most likely related to his ascites. 9. Acute renal retention. 10. Subdural hematoma. 11. Status post total shoulder arthroplasty on the left side. 12. Alcohol user. 13. Liver cirrhosis. 14. Hypertension. PLAN: Dr. Raymond wants to scan his abdomen. The patient had 4 L drained of transudative fluid from his abdomen yesterday by radiologist. He is quickly accumulating fluids. The plan is to scan his abdomen and start him on diuretics after that to avoid renal problems. Critical Care and GI specialists will make decision about restarting his anticoagulation for DVT and PE. Job ID: [id number]
--- NOTE | 2019-01-29 13:13 | PRG ---
DATE OF SERVICE: 01/29/2019 SUBJECTIVE: Mr. Rivas has no complaints overnight. He did not have his CAT scan today because apparently he has a contrast allergy. When the patient is asked about that, he does not know anything about this. He did, however, receive steroids and Benadryl before his IVC filter was placed several days ago. OBJECTIVE: VITAL SIGNS: Temperature is 98, pulse is 63, blood pressure is 101/83. GENERAL: He is resting comfortably in bed. He is in no distress. He is without complaints. LUNGS: Clear. HEART: Regular rate and rhythm without murmurs, clicks, or murmurs. ABDOMEN: Protuberant with shifting dullness. There seems to be more ascites than yesterday. EXTREMITIES: Reveal edema. He has edema in his back. LABORATORY STUDIES: Sodium 142, potassium 4.2, BUN and creatinine are 16 and 0.6. Phosphorus 2.5, magnesium 1.7. Iron 25, TIBC 124, ferritin 411. AST 39, ALT 31, alkaline phosphatase 268. AFP was normal. Immunology IgG is low at 415 and IgM 64. All other autoimmune workup pending. Ascitic fluid albumin 0.3 with the serum to ascites albumin gradient 2.3, and this is consistent with portal hypertensive ascites. Ascitic fluid cultures pending. ASSESSMENT: 1. Esophageal ulcer, severe. No signs of active bleeding with stable hemoglobin last checked yesterday. 2. Deep vein thrombosis with suspected early small pulmonary embolus, status post IVC filter placement. I talked with Pulmonary today, they are anxious to get the patient started on some anticoagulation. 3. Pulmonary embolism, stable. 4. Cirrhosis, likely related to alcohol. Serologic workup pending. 5. Encephalopathy, improved. 6. Hiatal hernia. 7. Edema and ascites, worsening today. 8. Subdural hematoma. 9. Previous significant alcohol use, unclear how much alcohol has been used presently. 10. Malnutrition with muscle wasting. 11. History of liver masses on noncontrast CT and a renal mass in 2016. The etiology of this has been unclear. PLAN: 1. We will defer to Pulmonology in terms of when to start anticoagulation. They are talking about starting low-dose prophylactic anticoagulation versus This is probably reasonable, but with regard to his esophageal issues because if he bleeds, we can stop it, but he does have subdural hematoma as well apparently. 2. We will go and start low-dose diuretics. hold off on this until after his CAT scan, but he is accumulating fluid pretty rapidly. He is on a low sodium diet. 3. Await CT scan results of the liver masses and history of renal lesion in 2016. 4[address] Sparrow will return to resume GI care tomorrow. Job ID: [id number]
[2019-01-29] MEDS ORDERED: Furosemide 40 MG TAB PO SCH (13:30)
[2019-01-29] MEDS ORDERED: Sodium Chloride 0.9% 1,000 ML IV SCH (13:30)
[2019-01-29] MEDS ORDERED: Spironolactone 100 MG TAB PO SCH (13:30)
--- NOTE | 2019-01-29 14:44 | PRG ---
DATE OF SERVICE: 01/29/2019 SERVICE: Pulmonary Medicine. INTERVAL HISTORY: The patient is doing fine from respiratory standpoint. Breathing comfortably. No signs of bleeding. Denies any current fevers, chills, nausea, or vomiting. He has good appetite. PHYSICAL EXAMINATION: VITAL SIGNS: Afebrile, pulse 64, blood pressure 128/67, respirations 26, saturation 96% on room air. GENERAL: The patient is awake, alert, in no apparent distress. LUNGS: Decent air entry. There is no prolonged expiratory phase, wheezing, or crackles. HEART: Normal rate. Regular. ABDOMEN: Soft, nontender, nondistended. Bowel sounds are positive. MUSCULOSKELETAL: No cyanosis or clubbing. There is no pitting in the bilateral lower extremities. NEUROLOGIC: Grossly nonfocal. LABORATORY DATA: Chloride 112 and up trending. Basic metabolic profile is otherwise unremarkable. Liver function studies are also unremarkable. Iron studies including iron and TIBC are low. That being said, stores are elevated consistent with chronic disease. Blood cultures x2, urine culture, and respiratory culture are all unremarkable. ASSESSMENT: 1. Esophageal ulcer. 2. Deep venous thrombosis. 3. Acute pulmonary embolism. 4. Cirrhosis. 5. Metastatic process, including kidney mass, and liver lesions. 6. Sub dural hematoma, small and without neurologic symptoms. DISCUSSION AND PLAN: We will cautiously introduce Lovenox. We will give one dose on a daily basis at 1 mg/kg. This will need to be escalated to full-dose anticoagulation through time, but I would like to leave him on the low dose to make certain he does not have any bleeding complications. If he tolerates this, we will need to escalate this dose in a couple of days and subsequently convert him over to a p.o. medication. Pulmonary/Critical Care will continue to follow along while the patient remains inhouse. Job ID: [id number] [facility]
[2019-01-29] MEDS ORDERED: Enoxaparin Sodium 100 MG/ML SYRINGE SC SCH (15:30)
[2019-01-29] MEDS: Albumin 25% 25 GM/100 ML BOT IVPB SCH (17:52)
[2019-01-29] MEDS: predniSONE 50 MG TAB PO SCH (20:36)
[2019-01-30] MEDS: predniSONE 50 MG TAB PO SCH ×2 (01:58→08:10)
[2019-01-30 07:08] LABS: #Lymphocytes 0.6 thou/uL (1.20-3.40); #Monocytes 0.2 thou/uL (0.11-0.59); #Neutrophils 10.3 thou/uL (1.40-6.50); %Basophils 0.2 % (0.0-1.0); %Eosinophils 0.1 % (0.0-10.0); %Lymphocytes 5.2 % (21.0-51.0); %Monocytes 2.2 % (0.0-10.0); %Neutrophils 92.3 % (42.0-75.0); Hemoglobin 12.6 g/dL (14.0-18.0); Mean Corpuscular HGB CONC 32.6 g/dL (32.0-36.0); Mean Corpuscular Hemoglobin 32.9 pg (27.0-31.0); Platelet Count 196 thou/uL (130-400); RBC Distribution Width 13.7 % (11.5-14.5); Red Blood Cell (RBC) Count 3.83 mill/uL (4.70-6.10); White Blood Cell (WBC) Count 11.2 thou/uL (4.8-10.8)
[2019-01-30 07:28] LABS: Anion Gap 12 mmol/L (10-20); BUN (Urea Nitrogen) 13 mg/dL (8.4-25.7); Calc. Creatinine Clearance 117 mL/min (70-130); Calcium 8.3 mg/dL (7.8-10.44); Carbon Dioxide 23 mmol/L (23-31); Chloride 109 mmol/L (98-107); Estimated GFR-MDRD Greater than 90; Glucose 164 mg/dL (83-110); Potassium 4.4 mmol/L (3.5-5.1); Sodium 140 mmol/L (136-145)
[2019-01-30] MEDS ORDERED: diphenhydrAMINE 50 MG CAP PO SCH (08:00)
[2019-01-30] MEDS ORDERED: Enoxaparin Sodium 80 MG/0.8 ML SYRINGE SC SCH (09:00)
[2019-01-30] MEDS: Tamsulosin HCl 0.4 MG CAP PO SCH (10:55)
[2019-01-30] MEDS: Multivitamin W/ Minerals 1 TAB PO SCH (10:55)
[2019-01-30] MEDS: Atenolol 50 MG TAB PO SCH ×2 (10:55→21:10)
[2019-01-30] MEDS: Spironolactone 100 MG TAB PO SCH (10:55)
[2019-01-30] MEDS: Thiamine 100 MG TAB PO SCH (10:55)
[2019-01-30] MEDS: cefTRIAXone\\ROCEPHIN 1 GM in Sodium Chloride 0.9% 100 ML IVPB SCH (10:55)
[2019-01-30] MEDS: Furosemide 40 MG TAB PO SCH (10:55)
[2019-01-30] MEDS: Pantoprazole 40 MG VIAL IVP SCH ×2 (11:04→21:10)
[2019-01-30] MEDS: Sodium Chloride 0.9% (PF) 10 ML VIAL IV SCH ×2 (11:06→21:13)
[2019-01-30] MEDS: Multivit, Therapeutic 1 TAB PO SCH (11:08)
--- NOTE | 2019-01-30 11:29 | CT ---
CT ABDOMEN AND PELVIS WITH AND WITHOUT CONTRAST: Date: 01/30/19 HISTORY: Malignancy. COMPARISON: CT abdomen and pelvis dated 12/30/15. FINDINGS: There are small bilateral pleural effusions. No pericardial effusion. There is a large right renal mass, which is invasive, extending into the posterior perirenal fascia a butting the quadratus lumborum muscle. This mass measures 10.0 cm in transverse x 7.0 cm in AP dimens ion x 7.0 cm in craniocaudad dimension. There is tumor extension in the renal vein. There are infrare nal IVC filters in place. The mass is about 80% endophytic with extension to the renal pelvis and argenis al sinus fat. There is a mass of the pancreatic body measuring 5.0 cm in transverse x 2.7 cm in AP dimension x cran iocaudad length of 3.6 cm. There are internal calcifications. Atrophy of the pancreatic tail. There are innumerable hypodense masses throughout the liver. Index lesion hepatic segment VII, axial image 19, measures 2.4 cm in greatest dimension. There is 2.4 cm hepatic segment VIII, axial image 19 , mass is present. A left lobe index lesion, axial image 19, measures 14.0 mm. There is no significan t contrast in the right or left portal veins, or the main portal vein, with limited contrast within t he superior mesenteric vein, all concerning for thrombosis. There is moderate volume ascites. The aortic contour is nonaneurysmal. There is mass at the left adrenal gland measuring 2.5 cm, increa sed from the 2016 examination, with some central necrosis. There is also abnormal mass in the right a drenal body with central necrosis measuring 15.0 mm. Spleen is unremarkable. Proteinaceous cyst anter ior cortex interpolar left kidney. Abnormal dilatation of the right common femoral vein, likely thrombosed. There is extensive third spa cing of fluid throughout the superficial soft tissues. There is a lytic focus in left ilium, axial image 86, measuring 11.0 mm in size, concerning for osseo us metastatic disease. This is new from 2016. There is also lucency with cortical breakthrough of the right anterior inferior iliac spine. Old left anterior 5th and 6th rib fractures. IMPRESSION: 1. Large mass of the right kidney with involvement of the perirenal fascia, as well as renal sinus, and extending into the right renal vein. Mass does appear to extend to the IVC. 2. Mass of the pancreas as described, concerning for malignancy. 3. Innumerable hepatic metastatic disease. 4. New moderate volume ascites. 5. Osseous metastatic disease of the pelvis. 6. Third spacing of fluid. POS: RUSS
--- NOTE | 2019-01-30 14:12 | PRG ---
DATE OF SERVICE: 01/30/2019 SUBJECTIVE: The patient is seen and examined at the bedside. He does not have much complaints to offer. He noticed that his abdominal distention is getting worse. OBJECTIVE: VITAL SIGNS: Blood pressure is 161/77, pulse is 78, temperature is 98.0, maximal temperature is 99.2, respiratory rate is 18, and O2 saturation is 95% on room air. HEENT: His head is atraumatic and normocephalic. He looks emaciated and malnourished. Pupils are responding to light properly. Oral mucosa is moist. NECK: Supple. LUNGS: Breath sounds diminished at both bases. HEART: S1 and S2, somewhat irregular. No S3. No S4. ABDOMEN: Distended, not tender. Bowel sounds sluggish. EXTREMITIES: Right [id number] amputee. Left lower extremity 2+ peripheral edema. NEUROLOGICAL: He follows my commands. He moves his extremities. No motor deficits. LABORATORY DATA AND DIAGNOSTIC STUDIES: Labs showed white count of 11.2, hemoglobin 12.6, hematocrit 38.7, and platelet count 196,000. Sodium of 140, potassium 4.4, chloride 109, CO2 of 23, BUN 13, and creatinine 0.68. Glycemia is ranging from 119 to 197. Calcium 8.3. Microbiology; blood cultures x2 negative x5 days. Urine culture negative x48 hours. Blood culture Gram stain shows moderate WBCs, no organisms seen. CT of the abdomen and pelvis showed, 1. Large mass of right kidney with involvement of the perirenal fascia as well as renal sinus and extending into the right renal vein. Mass does appear to extend to IVC. 2. Mass of pancreas, concerning for malignancy. 3. Innumerable hepatic metastatic disease. 4. New moderate volume ascites. 5. Osseous metastatic disease of the pelvis. 6. Third spacing of fluid. IMPRESSION: 1. Upper gastrointestinal bleeding from erosive esophagitis and large ulceration of the distal esophagus and esophagitis. 2. Pulmonary embolism. 3. Right femoral vein thrombosis, status post inferior vena cava filter placement. 4. Liver cirrhosis. 5. Right renal mass, suspicious for malignancy. 6. Pancreatic mass, suspicious for malignancy. 7. Multiple osseous and liver metastatic lesions. 8. Encephalopathy, acute, improved. 9. Hiatal hernia. 10. Scrotal swelling, most likely related to his ascites and deep vein thrombosis. 11. Acute renal retention. 12. Status post total shoulder arthroplasty on the left side. 13. Alcohol user. 14. Hypertension. DISCUSSION: The patient was informed about the findings on his CAT scan of the pelvis and abdomen. This looks like it is a malignancy, most likely more than one primary with multiple osseous and liver metastatic lesions. The patient is going to think about his code status and possible hospice services involvement. This severity of the findings on the CT is very significant to the point that he would not be candidate for any kind of curative therapy. We will talk to manager membership Dr. Raymond and seek his opinion. Also, we will talk about restarting his anticoagulation if it is possible. Job ID: [id number]
[2019-01-30] MEDS: Melatonin 3 MG TAB PO PRN (21:17)
[2019-01-31] MEDS: Pantoprazole 40 MG VIAL IVP SCH ×2 (09:36→20:42)
[2019-01-31] MEDS: Sodium Chloride 0.9% (PF) 10 ML VIAL IV SCH ×2 (09:36→20:42)
[2019-01-31] MEDS: Thiamine 100 MG TAB PO SCH (09:37)
[2019-01-31] MEDS: Spironolactone 100 MG TAB PO SCH (09:37)
[2019-01-31] MEDS: Furosemide 40 MG TAB PO SCH (09:37)
[2019-01-31] MEDS: Tamsulosin HCl 0.4 MG CAP PO SCH (09:37)
[2019-01-31] MEDS: Multivitamin W/ Minerals 1 TAB PO SCH (09:37)
[2019-01-31] MEDS: Atenolol 50 MG TAB PO SCH ×2 (09:37→20:41)
[2019-01-31] MEDS: cefTRIAXone\\ROCEPHIN 1 GM in Sodium Chloride 0.9% 100 ML IVPB SCH (09:45)
[2019-01-31] MEDS ORDERED: Bisacodyl 5 MG TAB PO SCH (11:45)
--- NOTE | 2019-01-31 14:21 | PRG ---
DATE OF SERVICE: SUBJECTIVE: The patient is seen and examined at the bedside. He wants somebody to cut his toenails in his feet and hands, they are already grown. OBJECTIVE: VITAL SIGNS: Blood pressure is 139/74, temperature is 97.2, respiratory rate is 18, pulse is 71, and O2 saturation is 95% on room air. HEENT: His head is atraumatic and normocephalic. He is emaciated. He looks malnourished. HEENT: Pupils are responding to light properly. Sclerae are nonicteric. Oral mucosa is moist. NECK: Supple. LUNGS: Breath sounds somewhat diminished at both bases. HEART: S1 and S2 normal. No S3. No S4. ABDOMEN: Soft, somewhat distended, mildly tender to deeper palpation in diffuse fashion. Peristalsis, sluggish. EXTREMITIES: Right lower extremity [id number]-[id number] amputee. Left lower extremity 2+ peripheral edema. LABORATORY DATA: Glycemia is ranging from 130 to 260. No new microbiology results. IMPRESSION: 1. Large mass of the right kidney with involvement of the perirenal fascia as well as renal sinus and extending into the right renal vein. Mass does appear to extend to IVC on CT. 2. Mass of pancreas concerning for malignancy. 3. Innumerable hepatic metastatic disease. 4. Osseous metastatic disease of the pelvis. 5. Upper gastrointestinal bleeding from erosive esophagitis and large ulceration of the distal esophagus and esophagitis. 6. Pulmonary embolism. 7. Right femoral vein thrombosis, status post vena cava filter placement. 8. Liver cirrhosis. 9. Right renal mass, suspicious for malignancy. 10. Encephalopathy acute, improved. 11. Hiatal hernia. 12. Status post total shoulder arthroplasty on the left side. 13. Alcohol user. 14. Hypertension. DISCUSSION: The patient was told about the findings of the CT. He still wants to be a full code and he is going to think about hospice service involvement in his care. He would like to visit with oncologists and see whether there is any chance to save his life, and we will call Dr. Arciniega, who is on-call today, and we will go from there. Job ID: [id number]
[2019-01-31] MEDS: Acetaminophen 325 MG TAB PO PRN (16:22)
--- NOTE | 2019-01-31 17:57 | PRG ---
DATE OF SERVICE: 01/31/2019 SUBJECTIVE: This is a 73-year-old male, who hospitalized with upper GI bleeding and was found to have multiple other problems including DVT, pulmonary embolism and has undergone IVC filter placement. He also had an EGD, which revealed a severe esophagitis, ulcerations. The patient had ascites, which was drained over the weekend. He had abdominal CAT scan done yesterday. CAT scan done with contrast. Contrast shows studies with multiple abdominal findings. He appears to have a very large right renal mass and also pancreatic mass. He also has multiple liver mets. There is also mention of possibly portal vein thrombosis by CAT scan. The patient has been nicely doing well, although he has multiple problems on the CAT scan. He has no abdominal pain, nausea, or vomiting. He was seen in the room along with Ms. Lisa Graves from oncology. After a long discussion with the patient, the patient's family and patient want to have biopsy done to document his malignancy. He still has hopes of having some chemotherapy. Although, it was explained at length before the advanced lesions, he still wants have biopsy and decide on chemotherapy. PHYSICAL EXAMINATION: GENERAL: Appears comfortable. VITAL SIGNS: Stable. Afebrile. Pulse is 66, blood pressure 120/70. CARDIOVASCULAR/LUNGS: Within normal limits. ABDOMEN: Soft. Abdomen is nontender. He still has ascites. LABORATORY DATA: Most recent lab data from yesterday; WBC 11,200, hemoglobin 12.6, hematocrit 38.7, and MCV 101. Serum chemistries; sodium is 140, potassium 4.4, chloride 109, bicarb 23, BUN is 13, and creatinine 0.68. IMPRESSION: 1. Right renal mass. 2. Pancreatic mass. 3. Multiple liver and osseous metastasis. From GI standpoint, nothing more to add on and I believe he biopsy. This will be arranged by Ms. Lisa Graves from Oncology. I will sign off from today. If there are any new problem, please call me back. Job ID: [id number]
[2019-01-31] MEDS: Melatonin 3 MG TAB PO PRN (20:42)
[2019-02-01 06:13] LABS: INR-International Normal Ratio 1.2; PTT 30.9 SEC (22.9-36.1); Prothrombin Time 15.6 SEC (12.0-14.7)
--- NOTE | 2019-02-01 07:49 | CON ---
DATE OF CONSULTATION: REASON FOR CONSULTATION: Metastatic disease. HISTORY OF PRESENT ILLNESS: Mr. Rivas is a 73-year-old gentleman, who presented to the emergency room after a fall at rehab facility, where he was recovering from left shoulder surgery. The patient was found down with his face in emesis. In the emergency room, he underwent a CT scan of his brain, which showed a slight asymmetry of the left tentorium cerebelli, was concerning for extra-axial blood. The patient was started on Protonix and octreotide drip. Neurosurgery saw the patient and had no surgical recommendations. The patient has a history of alcoholic cirrhosis. Dr. Sparrow was consulted, and EGD was performed, which confirmed erosive esophagitis with a large ulceration over the distal esophagus. He also had a CT angiogram, which was positive for pulmonary embolus. He had a thrombus in his right amputated leg. Due to GI bleeding, anticoagulation was not performed. An IVC filter was placed. The patient had ascites and underwent paracentesis. He also had an abdominal and pelvis CT, that showed a 10 cm x 7 x 7 right renal mass or tumor extended into the renal vein. There were infrarenal IVC filters in place. The mass was about 80% endophytic with extension to the renal pelvis and renal sinus fat. There were numerous hypodense lesions in the liver. There was a lytic focus of the left ilium concerning for metastatic disease. The patient had a CT scan in December of 2015, when he was seen in the ER after a fall. The right renal mass was seen at that time, measuring 6.5 x 5.5 x 4.5 cm. The patient was informed of the renal mass and encouraged to follow up. Unfortunately, he went AMA and has not seen anyone for this mass since that time. We were asked to see the patient with assistance with diagnosis. PAST MEDICAL HISTORY: 1. Hypertension. 2. BPH. 3. Right renal mass seen on CT in 2015, with no followup. 4. Tobacco abuse. 5. History of alcohol use. PAST SURGICAL HISTORY: 1. Right AKA. 2. Appendectomy. 3. Left shoulder surgery. ALLERGIES: 1. ADHESIVE. 2. IODINE. 3. PENICILLIN. HOME MEDICATIONS: 1. Aspirin 81 mg daily. 2. Atenolol 50 b.i.d. 3. Lisinopril 20 mg b.i.d. 4. Flomax 0.4 mg daily. 5. Tramadol 50 mg p.r.n. FAMILY HISTORY: His mother and uncle had what sounds like lymphoma. SOCIAL HISTORY: He is . Has multiple children. Lives alone here in [place]. Again, positive for tobacco use. History of alcohol abuse, quit a couple of years ago. REVIEW OF SYSTEMS: A 10-point review of systems is negative except for noted in HPI. PHYSICAL EXAMINATION: VITAL SIGNS: Temperature is 98.3, pulse is 66, respiratory rate 20, BP is 129/71. He is 96% on room air. GENERAL: This is a disheveled male, in no acute distress. HEENT: Normocephalic and atraumatic. Pupils are equal and reactive to light. NECK: Supple. CV: Regular rate and rhythm. LUNGS: Clear. ABDOMEN: Distended and firm. Bowel sounds are positive. EXTREMITIES: Right AKA. No clubbing or cyanosis of his left lower extremity. SKIN: No rash. HEMATOLOGICAL: He has scattered bruising on his upper extremities. NEUROLOGICAL: Nonfocal. PSYCHIATRIC: The patient is alert, oriented, and appropriate. PERTINENT LABS AND X-RAYS: Current WBCs are 11.2, hemoglobin 12.6, hematocrit 38.7, platelet counts are 196,000. He has 92% neutrophils and 5% lymphocytes. PT is 14.9, INR is 1.2, PTT is 31.2. Sodium is 140, potassium 4.4, chloride 109, CO2 is 23, BUN is 13, creatinine is 0.68, calcium is 8.3, phosphorus 2.5, magnesium 1.7. Iron is 25, TIBC is 124, ferritin is 411. Total bilirubin is 1.2, AST is 39, ALT is 31, alkaline phosphatase is 268, serum total protein is 4.3, albumin 2.9, globulin 1.8. AFP is 2. Radiology: Per HPI. ASSESSMENT: 1. Metastatic disease with a large right kidney mass, pancreatic mass, liver lesions, and possible bone metastases. 2. Deep venous thrombosis and pulmonary emboli. 3. Recent fall with a subdural hematoma. 4. Upper gastrointestinal bleed with esophagitis. 5. Cirrhosis. 6. History of alcohol abuse. DISCUSSION: Case was discussed with Dr. Arciniega. The patient's large tumor burden was discussed with both the patient and family. We discussed this is going to be stage IV disease and not curable. Treatment will be palliative and directed at extension and quality of life. The patient understands and wishes to proceed with biopsy. Plan both the kidney and bone biopsy. We will check a CA-19-9, and further recommendations will be based on these results. I do feel like the patient would be very difficult to treat and have poor tolerance to treatments. He has multiple social issues to work out as he has no family lives in this area and is unable to return to live by himself. A clinical case manager has been consulted. Palliative Care Team is on the case. We will follow along with this patient. Job ID: [id number]
[2019-02-01] MEDS ORDERED: Fentanyl 100 MCG/2 ML VIAL ONE (08:31)
[2019-02-01] MEDS ORDERED: Sodium Bicarbonate 2.5 MEQ/5 ML VIAL ONE (08:31)
[2019-02-01] MEDS ORDERED: Midazolam HCl 2 mg/2 ml Vial ONE (08:31)
[2019-02-01] MEDS: Pantoprazole 40 MG VIAL IVP SCH ×2 (09:50→21:12)
[2019-02-01] MEDS: cefTRIAXone\\ROCEPHIN 1 GM in Sodium Chloride 0.9% 100 ML IVPB SCH (09:51)
[2019-02-01] MEDS: Atenolol 50 MG TAB PO SCH ×2 (09:51→21:11)
[2019-02-01] MEDS: Sodium Chloride 0.9% (PF) 10 ML VIAL IV SCH ×2 (09:51→21:18)
[2019-02-01] MEDS: Furosemide 40 MG TAB PO SCH (09:52)
[2019-02-01] MEDS: Tamsulosin HCl 0.4 MG CAP PO SCH (09:52)
[2019-02-01] MEDS: Spironolactone 100 MG TAB PO SCH (09:52)
[2019-02-01] MEDS: Multivitamin W/ Minerals 1 TAB PO SCH (09:52)
[2019-02-01] MEDS: Thiamine 100 MG TAB PO SCH (09:52)
[2019-02-01] MEDS: Bisacodyl 5 MG TAB PO PRN (09:57)
[2019-02-01 11:31] LABS: ANA Symphony (Qualitative) Negative (Negative); ANA Symphony (Quantitative) 0.1 Ratio (< 0.7 Negative); EliA Vaculitis New Method **** NEW METHOD ****; Mitochondrial Ab 0.7 U/mL (<4 Negative); dsDNA IgG Antibody Less than 0.5 IU/mL (<10 Negative)
--- NOTE | 2019-02-01 12:50 | CT ---
CT GUIDED PERCUTANEOUS RIGHT RENAL MASS BIOPSY: 02/01/2019 HISTORY: Patient with large right renal mass, as well as pancreatic mass. Biopsy of the renal mass was reques jose juan prior to initiating treatment. TECHNIQUE: Contiguous axial CT images were obtained through the level of the kidneys, with a grid localizer in p [facility] overlying the left back and flank region. An area was marked and then meticulously prepped and draped in the usual sterile fashion. The skin and subcutaneous tissues were infiltrated with buffered 1% Lidocaine for local anesthesia. A small skin incision was made. A 17 gauge guide needle was advanced into the mass, and positioning was confirmed with axial CT image s. A total of three 18 gauge core needle biopsy specimens were obtained, utilizing a coaxial [employer] ue. The inner stylet was replaced, and the needle was removed. Hemostasis was achieved with direct press ure. Follow-up axial CT images demonstrate a tiny amount of increased density adjacent to the biopsy site, likely related to a very tiny amount of hemorrhage, due to recent biopsy. The patient's vital signs remained stable during the procedure, as well as post procedure. The pathologist was available during the exam for evaluation of the specimens, and it was determined that adequate tissue sampling was performed. As a result, no additional biopsies were obtained. FINDINGS: Limited imaging through the abdomen demonstrates moderate-sized intraperitoneal free fluid. A large heterogeneous mass involving the right kidney is again seen. Multiple hypodense lesions are seen thr oughout the liver, related to metastatic disease, and there is also a hypodense mass again seen in th e pancreas, as noted on the CT abdomen on 01/30/2019, also worrisome for a neoplastic process. An IV C filter is noted in place. Technically successful CT guided percutaneous biopsy of the right renal mass was performed. Patholog y is currently pending at this time. IMPRESSION: 1. Technically successful CT guided percutaneous biopsy of a right renal mass. 2. Additional findings within the abdomen as described above, which were better described on CT abdo men and pelvis on 01/30/2019. POS: [facility]
--- NOTE | 2019-02-01 14:42 | PRG ---
DATE OF SERVICE: 02/01/2019 SUBJECTIVE: The patient is seen and examined at the bedside. He does not have much complaints to offer. He is able to tolerate food without any problems. He does not have much pain. OBJECTIVE: VITAL SIGNS: Blood pressure is 132/77, pulse is 70, temperature is 97.8, respirations 18, O2 saturation is 95% on room air. HEENT: His head is atraumatic and normocephalic. Eyes are PERRLA. Sclerae are nonicteric. Oral mucosa is moist. NECK: Supple. LUNGS: Breath sounds diminished at both bases. HEART: S1, S2, somewhat irregular. No S3. No S4. ABDOMEN: Somewhat distended, not tender to palpation. No guarding. No masses. There is probably some ascites present. EXTREMITIES: Right lower extremity [id number] amputee. Left lower extremity 1 to 2+ peripheral edema. NEUROLOGICAL EXAMINATION: He is able to follow my commands. He is moving his all 4 extremities. LABORATORY DATA: Labs showed glycemia of 101. INR 1.2. PT of 15.6. Microbiology, no new findings. IMPRESSION: 1. A large mass of the right kidney with involvement of the perirenal fascia as well as renal sinus and extending into the right renal vein. 2. Mass of pancreas concerning for malignancy. 3. Innumerable hepatic metastatic disease. 4. Osseous metastatic disease of the pelvis. 5. Upper gastrointestinal bleeding from erosive esophagitis and large ulceration of the distal esophagus and esophagitis. 6. Right femoral vein thrombosis, status post vena cava filter placement. 7. Liver cirrhosis. 8. Encephalopathy, acute, improved. 9. Hiatal hernia. 10. Status post recent total shoulder arthroplasty of the left shoulder. 11. Alcohol user. 12. Hypertension. DISCUSSION: The patient was seen by Oncology Service. The biopsies were done this morning and the case was discussed with the oncologist and his team, and most likely, they would not able to help him. For now, we will start him on small dose of baby aspirin. Job ID: [id number]
[2019-02-01] MEDS: Acetaminophen 325 MG TAB PO PRN (16:34)
[2019-02-02] MEDS: Diabetic Tussin 200 MG/10 ML UDCUP PO PRN ×3 (04:17→19:55)
[2019-02-02] MEDS: Spironolactone 100 MG TAB PO SCH (09:00)
[2019-02-02] MEDS: Atenolol 50 MG TAB PO SCH ×2 (09:00→19:55)
[2019-02-02] MEDS: Thiamine 100 MG TAB PO SCH (09:00)
[2019-02-02] MEDS: Furosemide 40 MG TAB PO SCH (09:00)
[2019-02-02] MEDS: Tamsulosin HCl 0.4 MG CAP PO SCH (09:00)
[2019-02-02] MEDS: Aspirin 81 mg Enteric Coated Tablet PO SCH (09:00)
[2019-02-02] MEDS: Multivitamin W/ Minerals 1 TAB PO SCH (09:01)
[2019-02-02] MEDS: Pantoprazole 40 MG VIAL IVP SCH ×2 (09:01→19:56)
[2019-02-02] MEDS: cefTRIAXone\\ROCEPHIN 1 GM in Sodium Chloride 0.9% 100 ML IVPB SCH (09:02)
[2019-02-02] MEDS: Sodium Chloride 0.9% (PF) 10 ML VIAL IV SCH ×2 (09:04→19:56)
--- NOTE | 2019-02-02 14:00 | PRG ---
DATE OF SERVICE: 02/02/2019 SUBJECTIVE: The patient is seen and examined at the bedside. He is asking me about his chino postsurgery of his left shoulder and they need to come out. OBJECTIVE: VITAL SIGNS: Blood pressure is 140/70, pulse is 75, temperature is 98.2, respirations 18, O2 saturation 91% on room air. HEENT: His pupils are responding to light properly. Sclerae are nonicteric. Oral mucosa is moist. LUNGS: Diminished at both bases. HEART: S1 and S2 normal. ABDOMEN: Somewhat distended, but nontender. Bowel sounds are present. There is presence of ascites. EXTREMITIES: Right lower extremity [id number] amputee. Left lower extremity, 1+ peripheral edema. NEUROLOGICAL: He is alert and oriented x4. There are no any motor or sensory deficits. Cranial nerves are intact. LABORATORY DATA: Glycemia is ranging from 115 to 196. Pathology came back on his kidney biopsy as clear cell carcinoma. IMPRESSION: 1. Mass of the right kidney with involvement of the perirenal fascia as well as renal sinus and extended into the right renal vein, status post biopsy, and pathology report is back as clear cell renal cell carcinoma. Oncology will make decision about further management. 2. Massive pancreatic concerning for malignancy. Again recommendation per Oncology. 3. Innumerable hepatic metastatic disease. 4. Osseous metastatic disease of the pelvis. 5. Upper gastrointestinal bleeding from erosive esophagitis and large ulceration of the distal esophagus and esophagitis. 6. Pulmonary embolism. 7. Right femoral vein thrombosis, status post vena cava filter placement. 8. Liver cirrhosis. 9. Encephalopathy, acute, improved. 10. Hiatal hernia. 11. Status post total shoulder arthroplasty. 12. Alcohol user. 13. Hypertension. DISCUSSION: We will get an Ortho to remove his chino from the left shoulder, Oncology to make decision about his further treatment. We will discuss the case with them and final recommendation from them. Job ID: [id number]
[2019-02-02] MEDS: Acetaminophen 325 MG TAB PO PRN (19:55)
[2019-02-03] MEDS: Sodium Chloride 0.9% (PF) 10 ML VIAL IV SCH ×2 (08:44→20:25)
[2019-02-03] MEDS: Thiamine 100 MG TAB PO SCH (08:44)
[2019-02-03] MEDS: Tamsulosin HCl 0.4 MG CAP PO SCH (08:44)
[2019-02-03] MEDS: Pantoprazole 40 MG VIAL IVP SCH ×2 (08:44→20:24)
[2019-02-03] MEDS: Aspirin 81 mg Enteric Coated Tablet PO SCH (08:44)
[2019-02-03] MEDS: Atenolol 50 MG TAB PO SCH ×2 (08:44→20:24)
[2019-02-03] MEDS: Spironolactone 100 MG TAB PO SCH (08:44)
[2019-02-03] MEDS: Multivitamin W/ Minerals 1 TAB PO SCH (08:44)
[2019-02-03] MEDS: Furosemide 40 MG TAB PO SCH (08:44)
[2019-02-03] MEDS: cefTRIAXone\\ROCEPHIN 1 GM in Sodium Chloride 0.9% 100 ML IVPB SCH (08:46)
--- NOTE | 2019-02-03 14:07 | PRG ---
DATE OF SERVICE: 02/03/2019 SUBJECTIVE: The patient does not have much complaints to offer. This morning, his appetite is fair. OBJECTIVE: VITAL SIGNS: Blood pressure is 108/55, pulse is 69, temperature 97.9, respirations 16, and O2 saturation is 91% on room air. HEENT: His head is atraumatic and normocephalic. Eyes are PERRLA. Sclerae nonicteric. Oral mucosa is moist. NECK: Supple. LUNGS: Clear. HEART: S1 and S2 normal. ABDOMEN: Distended, [id number]-sxtibepu with some ascites. Bowel sounds are present, sluggish. EXTREMITIES: Right lower extremity [id number]-[id number] amputee. Left lower extremity, 1+ peripheral edema. NEUROLOGIC: He follows my commands. He moves his all 4 extremities. There are no any motor deficits present at this point. LABORATORY DATA: Glycemia is ranging from 148 to 172. IMPRESSION: 1. Mass of the right kidney with involvement of the perirenal fascia as well as renal sinus and extended into the right renal vein, status post biopsy and pathology report is back as clear cell renal cell carcinoma. Dr. Arciniega is going to meet with him and 2 daughters tomorrow at 10:00 a.m. to make recommendation of his treatment. 2. Mass of pancreas concerning of malignancy. 3. Innumerable hepatic metastatic disease. 4. Osseous metastatic disease of the pelvis. 5. Upper gastrointestinal bleeding from erosive esophagitis and large ulceration of the distal esophagus and esophagitis. 6. Right femoral vein thrombosis, status post vena cava filter placement. 7. Liver cirrhosis. 8. Encephalopathy, acute and improved. 9. Hiatal hernia. 10. Status post total shoulder arthroplasty. 11. Alcohol user. 12. Hypertension. DISCUSSION: The patient is going to discuss his options tomorrow with Dr. Arciniega, oncologist's service theater set production designer. The patient's daughter supposed to be present during this visit. For now, we will continue his current regimen. We will stop his Rocephin. Job ID: [id number]
[2019-02-03] MEDS: Diabetic Tussin 200 MG/10 ML UDCUP PO PRN (19:09)
[2019-02-03] MEDS: Acetaminophen 325 MG TAB PO PRN (21:24)
[2019-02-04] MEDS: Atenolol 50 MG TAB PO SCH ×2 (08:59→21:18)
[2019-02-04] MEDS: Sodium Chloride 0.9% (PF) 10 ML VIAL IV SCH ×2 (08:59→23:47)
[2019-02-04] MEDS: Tamsulosin HCl 0.4 MG CAP PO SCH (08:59)
[2019-02-04] MEDS: Pantoprazole 40 MG VIAL IVP SCH ×2 (08:59→21:18)
[2019-02-04] MEDS: Thiamine 100 MG TAB PO SCH (08:59)
[2019-02-04] MEDS: Spironolactone 100 MG TAB PO SCH (08:59)
[2019-02-04] MEDS: Furosemide 40 MG TAB PO SCH (08:59)
[2019-02-04] MEDS: Multivitamin W/ Minerals 1 TAB PO SCH (08:59)
[2019-02-04] MEDS: Aspirin 81 mg Enteric Coated Tablet PO SCH (08:59)
[2019-02-04] MEDS: cefTRIAXone\\ROCEPHIN 1 GM in Sodium Chloride 0.9% 100 ML IVPB SCH (09:00)
--- NOTE | 2019-02-04 10:05 | PDOC.PN ---
- Subjective Encounter Start Date: 02/04/19 Encounter Start Time: 10:03 Subjective: Seen and examined with no new complaint - Objective Resuscitation Status - Order Detail: 01/24/19 02:03 Resuscitation Status Routine Co-Sign Provider: Resuscitation Status: FULL: Full Resuscitation Vital Signs & Weight: Vital Signs (12 hours) Temp Pulse Resp BP Pulse Ox 02/04/19 08:55 98.3 F 62 16 133/71 96 02/04/19 07:02 90 L 02/04/19 07:01 66 20 90 L 02/04/19 04:29 98.8 F 60 16 129/62 92 L Weight Admit Weight 189 lb 3.2 oz Weight 179 lb 8 oz Most Recent Monitor Data Heart Rate from ECG 68 NIBP 144/82 NIBP BP-Mean 102 Respiration from ECG 30 SpO2 92 I&O: 02/03/19 02/04/19 02/05/19 06:59 06:59 07:59 Intake Total 640 1740 Output Total 795 675 Balance -155 1065 Result Diagrams: 01/30/19 06:48 01/30/19 06:48 Additional Labs: Accuchecks 02/04/19 02/03/19 02/03/19 05:25 20:08 16:32 POC Glucose 133 H 160 H 146 H 02/03/19 10:50 POC Glucose 171 H Phys Exam - Physical Examination Constitutional: NAD HEENT: PERRLA, moist MMs, sclera anicteric, TM's clear Neck: no nodes, no JVD, supple, full ROM Respiratory: no wheezing, no rales, no rhonchi, clear to auscultation bilateral Cardiovascular: RRR, no significant murmur, no rub Gastrointestinal: soft, non-tender, no distention, positive bowel sounds Musculoskeletal: no edema, pulses present Dx/Plan (1) Renal cell adenocarcinoma Code(s): C64.9 - MALIGNANT NEOPLASM OF UNSP KIDNEY, EXCEPT RENAL PELVIS Status : Acute (2) Pancreatic mass Status: Acute (3) Acute respiratory failure with hypoxia Code(s): J96.01 - ACUTE RESPIRATORY FAILURE WITH HYPOXIA Status: Acute (4) Acute urinary retention Code(s): R33.8 - OTHER RETENTION OF URINE Status: Acute - Plan PT/OT, long term care social worker Awaiting the family discusion with Dr Dumont * .
[2019-02-04] MEDS: Ondansetron PF 4 MG/2 ML Vial IVP PRN (11:17)
--- NOTE | 2019-02-04 13:14 | CON ---
DATE OF CONSULTATION: HISTORY OF PRESENT ILLNESS: This patient has renal cell carcinoma, clear cell type, which is quite locally advanced. He also has mass in the pancreas and has CA 19-9 measuring 81,098 indicating high likelihood of pancreatic carcinoma. He has multiple liver and lung metastases and also bone metastases. Liver metastases could not be biopsied, because of ascites. His serum albumin is 2.5. The patient lives by himself. Recently, he had left shoulder surgery and has right above-knee amputation. I had a long talk with him and 2 of his daughters. He has 2 different malignancies and we cannot determine, which of them has metastasized to liver, lungs and bones. His performance status is quite poor. The social situation is also very tenuous. He is highly unlikely to benefit on any intervention directed towards his cancer. He probably will have to be transferred to a care home where he should have hospice consult. Fortunately, at this time, he is not having any pain. Job ID: [id number]
[2019-02-04] MEDS: HYDROcodone/Acetaminophen 5/325 mg Tablet PO PRN ×2 (18:28→22:30)
--- NOTE | 2019-02-04 21:35 | EKG ---
Test Reason : Blood Pressure : / mmHG Vent. Rate : 077 BPM Atrial Rate : 077 BPM P-R Int : 136 ms QRS Dur : 134 ms QT Int : 476 ms P-R-T Axes : 000 -75 016 degrees QTc Int : 538 ms Sinus rhythm with occasional Premature ventricular complexes and Premature atrial complexes Right bundle branch block Left anterior fascicular block Bifascicular block Abnormal ECG Confirmed by JOSLYN AVILES ([id number]), field map editor SYDNI FUNES ([id number]) on 02/04/2019 9:34:35 PM Referred By: Confirmed By:JOSLYN AVILES
[2019-02-04] MEDS: Melatonin 3 MG TAB PO PRN (22:30)
[2019-02-05] MEDS: cefTRIAXone\\ROCEPHIN 1 GM in Sodium Chloride 0.9% 100 ML IVPB SCH (08:16)
[2019-02-05] MEDS: Thiamine 100 MG TAB PO SCH (08:18)
[2019-02-05] MEDS: Pantoprazole 40 MG VIAL IVP SCH (08:18)
[2019-02-05] MEDS: Sodium Chloride 0.9% (PF) 10 ML VIAL IV SCH (08:18)
[2019-02-05] MEDS: Atenolol 50 MG TAB PO SCH ×2 (08:18→21:58)
[2019-02-05] MEDS: Tamsulosin HCl 0.4 MG CAP PO SCH (08:18)
[2019-02-05] MEDS: Multivitamin W/ Minerals 1 TAB PO SCH (08:18)
[2019-02-05] MEDS: Aspirin 81 mg Enteric Coated Tablet PO SCH (08:18)
[2019-02-05] MEDS: Spironolactone 100 MG TAB PO SCH (08:18)
[2019-02-05] MEDS: Furosemide 40 MG TAB PO SCH (08:19)
[2019-02-05] MEDS: HYDROcodone/Acetaminophen 5/325 mg Tablet PO PRN (10:01)
--- NOTE | 2019-02-05 12:17 | PDOC.PN ---
- Subjective Encounter Start Date: 02/05/19 Encounter Start Time: 12:15 Patient seen and examined. No new complaints. No overnight events. He is very depressed. - Objective Resuscitation Status - Order Detail: 01/24/19 02:03 Resuscitation Status Routine Co-Sign Provider: Resuscitation Status: FULL: Full Resuscitation MAR Reviewed: Yes Vital Signs & Weight: Vital Signs (12 hours) Temp Pulse Resp BP Pulse Ox 02/05/19 11:16 97.9 F 56 L 16 119/56 L 92 L 02/05/19 11:12 57 L 19 90 L 02/05/19 08:18 91 L 02/05/19 07:12 97.9 F 64 20 120/63 91 L 02/05/19 06:48 57 L 18 91 L 02/05/19 04:15 97.7 F 60 18 104/57 L 95 Weight Admit Weight 189 lb 3.2 oz Weight 179 lb 8 oz Most Recent Monitor Data Heart Rate from ECG 68 NIBP 144/82 NIBP BP-Mean 102 Respiration from ECG 30 SpO2 92 I&O: 02/04/19 02/05/19 02/06/19 05:59 06:59 06:59 Intake Total Output Total Balance Result Diagrams: 01/30/19 06:48 01/30/19 06:48 Additional Labs: Accuchecks 02/05/19 02/05/19 02/04/19 11:00 05:41 20:23 POC Glucose 120 H 121 H 151 H 02/04/19 02/04/19 16:53 12:03 POC Glucose 172 H 156 H Phys Exam - Physical Examination Constitutional: NAD HEENT: sclera anicteric Neck: supple Respiratory: no wheezing, no rales Cardiovascular: RRR Gastrointestinal: soft Musculoskeletal: no edema Neurological: non-focal Psychiatric: normal affect, A&O x 3 Skin: no rash Dx/Plan (1) Pancreatic mass Status: Acute (2) Renal cell adenocarcinoma Code(s): C64.9 - MALIGNANT NEOPLASM OF UNSP KIDNEY, EXCEPT RENAL PELVIS Status : Acute (3) Hypertension Code(s): I10 - ESSENTIAL (PRIMARY) HYPERTENSION Status: Chronic (4) Macrocytic anemia Code(s): D53.9 - NUTRITIONAL ANEMIA, UNSPECIFIED Status: Chronic - Plan cont current plan of care * . pt with multiple masses and mets need hospice per Hem/Onc Family to make further decision. Transfer to Oncology.
[2019-02-06] MEDS: Diabetic Tussin 200 MG/10 ML UDCUP PO PRN ×3 (00:20→20:55)
[2019-02-06] MEDS: HYDROcodone/Acetaminophen 5/325 mg Tablet PO PRN ×3 (08:29→22:07)
[2019-02-06] MEDS: Spironolactone 100 MG TAB PO SCH (08:30)
[2019-02-06] MEDS: Furosemide 40 MG TAB PO SCH (08:30)
[2019-02-06] MEDS: Tamsulosin HCl 0.4 MG CAP PO SCH (08:30)
[2019-02-06] MEDS: Aspirin 81 mg Enteric Coated Tablet PO SCH (08:30)
[2019-02-06] MEDS: Multivitamin W/ Minerals 1 TAB PO SCH (08:30)
[2019-02-06] MEDS: Atenolol 50 MG TAB PO SCH ×2 (08:31→20:56)
[2019-02-06] MEDS: Thiamine 100 MG TAB PO SCH (08:31)
[2019-02-06] MEDS: Acetaminophen 325 MG TAB PO PRN ×2 (12:02→18:43)
--- NOTE | 2019-02-06 16:38 | PDOC.PN ---
- Subjective Encounter Start Date: 02/06/19 Encounter Start Time: 04:00 Subjective: PATIENT SEEN AND EVALUATED AT BEDSIDE,C/O GENERALISED WEAKNESS. - Objective Resuscitation Status - Order Detail: 01/24/19 02:03 Resuscitation Status Routine Co-Sign Provider: Resuscitation Status: FULL: Full Resuscitation MAR Reviewed: Yes Vital Signs & Weight: Vital Signs (12 hours) Temp Pulse Resp BP BP Pulse Ox 02/06/19 12:00 97.6 F 62 16 125/67 92 L 02/06/19 08:31 71 141/62 H 02/06/19 08:00 98.3 F 18 141/62 H 90 L 02/06/19 07:23 71 18 90 L Weight Admit Weight 189 lb 3.2 oz Weight 175 lb Most Recent Monitor Data Heart Rate from ECG 68 NIBP 144/82 NIBP BP-Mean 102 Respiration from ECG 30 SpO2 92 I&O: 02/05/19 02/06/19 02/07/19 06:59 06:59 06:59 Intake Total Output Total Balance Result Diagrams: 01/30/19 06:48 01/30/19 06:48 Additional Labs: Accuchecks 02/06/19 02/06/19 02/05/19 12:02 05:55 22:04 POC Glucose 118 H 121 H 126 H 02/05/19 17:17 POC Glucose 105 Phys Exam - Physical Examination HEENT: moist MMs Neck: no JVD, supple Respiratory: no wheezing, no rales, no rhonchi Cardiovascular: no significant murmur, no rub ASCITES Gastrointestinal: soft, non-tender Musculoskeletal: pulses present Neurological: non-focal, normal sensation, moves all 4 limbs Lymphatic: no nodes Psychiatric: normal affect, A&O x 3 Skin: no rash Dx/Plan (1) Metastasis Code(s): C79.9 - SECONDARY MALIGNANT NEOPLASM OF UNSPECIFIED SITE Status: Acute (2) Pancreatic mass Status: Acute (3) Renal cell adenocarcinoma Code(s): C64.9 - MALIGNANT NEOPLASM OF UNSP KIDNEY, EXCEPT RENAL PELVIS Status : Acute (4) Macrocytic anemia Code(s): D53.9 - NUTRITIONAL ANEMIA, UNSPECIFIED Status: Chronic Plan: PALLIATIVE CARE NH PLACEMENT. - Plan plan discussed w/ family, out of bed/ambulate 1.I HAVE EXTENSIVELY DISCUSSED WITH PATIENT AND TWO DAUGHTERS ABOUT LONGTER -: CARE AND PALLIATIVE END OF LIFE THERAPY.THEY AGREE WITH PLAN. * .
[2019-02-06] MEDS: Melatonin 3 MG TAB PO PRN (20:56)
[2019-02-07] MEDS: Aspirin 81 mg Enteric Coated Tablet PO SCH (08:46)
[2019-02-07] MEDS: Spironolactone 100 MG TAB PO SCH (08:46)
[2019-02-07] MEDS: Multivitamin W/ Minerals 1 TAB PO SCH (08:47)
[2019-02-07] MEDS: Furosemide 40 MG TAB PO SCH (08:47)
[2019-02-07] MEDS: Atenolol 50 MG TAB PO SCH ×2 (08:47→21:22)
[2019-02-07] MEDS: Tamsulosin HCl 0.4 MG CAP PO SCH (08:47)
[2019-02-07] MEDS: Thiamine 100 MG TAB PO SCH (08:48)
[2019-02-07 14:27] VITALS: BMI 22.9
--- NOTE | 2019-02-07 15:24 | PDOC.PN ---
- Subjective Encounter Start Date: 02/07/19 Encounter Start Time: 08:45 Subjective: Resting well and afebrile - Objective Resuscitation Status - Order Detail: 01/24/19 02:03 Resuscitation Status Routine Co-Sign Provider: Resuscitation Status: FULL: Full Resuscitation MAR Reviewed: Yes Vital Signs & Weight: Vital Signs (12 hours) Temp Pulse Resp BP BP Pulse Ox 02/07/19 08:47 60 121/60 02/07/19 08:00 98.0 F 60 16 121/60 91 L 02/07/19 07:40 69 16 90 L Weight Admit Weight 189 lb 3.2 oz Weight 174 lb 2.643 oz Most Recent Monitor Data Heart Rate from ECG 68 NIBP 144/82 NIBP BP-Mean 102 Respiration from ECG 30 SpO2 92 I&O: 02/06/19 02/07/19 02/08/19 06:59 06:59 06:59 Intake Total 940 Balance 940 Result Diagrams: 01/30/19 06:48 01/30/19 06:48 Additional Labs: Accuchecks 02/07/19 02/07/19 02/06/19 12:00 06:15 20:04 POC Glucose 108 124 H 124 H 02/06/19 17:18 POC Glucose 98 Phys Exam - Physical Examination HEENT: moist MMs Neck: no nodes, no JVD Respiratory: no wheezing, no rales, no rhonchi Cardiovascular: no significant murmur, no rub Gastrointestinal: soft, non-tender ascites Musculoskeletal: no edema, pulses present right bka Neurological: normal sensation, moves all 4 limbs Psychiatric: normal affect, A&O x 3 Skin: no rash Dx/Plan (1) Metastasis Code(s): C79.9 - SECONDARY MALIGNANT NEOPLASM OF UNSPECIFIED SITE Status: Acute Qualifiers: Area of secondary neoplastic involvement: mediastinum Qualified Code(s): C78.1 - Secondary malignant neoplasm of mediastinum Plan: Awaiting placement to NH and eventually Hospice/Palliative care (2) Pancreatic mass Status: Acute (3) Renal cell adenocarcinoma Code(s): C64.9 - MALIGNANT NEOPLASM OF UNSP KIDNEY, EXCEPT RENAL PELVIS Status : Acute (4) Macrocytic anemia Code(s): D53.9 - NUTRITIONAL ANEMIA, UNSPECIFIED Status: Chronic - Plan plan discussed w/ family AWAITING DISCHARGE PLAN TO NH AND HOSPICE. * .
[2019-02-07] MEDS: Diabetic Tussin 200 MG/10 ML UDCUP PO PRN (18:15)
[2019-02-07] MEDS: HYDROcodone/Acetaminophen 5/325 mg Tablet PO PRN (19:29)
[2019-02-07] MEDS: Bisacodyl 5 MG TAB PO PRN (19:30)
[2019-02-07] MEDS: Melatonin 3 MG TAB PO PRN (21:22)
[2019-02-07] MEDS: Acetaminophen 325 MG TAB PO PRN (21:25)
[2019-02-08 09:21] VITALS: BP 129/60; TEMP 96.9
[2019-02-08] MEDS: Thiamine 100 MG TAB PO SCH (10:14)
[2019-02-08] MEDS: Aspirin 81 mg Enteric Coated Tablet PO SCH (10:14)
[2019-02-08] MEDS: Tamsulosin HCl 0.4 MG CAP PO SCH (10:14)
[2019-02-08] MEDS: Furosemide 40 MG TAB PO SCH (10:14)
[2019-02-08] MEDS: Atenolol 50 MG TAB PO SCH (10:14)
[2019-02-08] MEDS: Spironolactone 100 MG TAB PO SCH (10:14)
[2019-02-08] MEDS: Multivitamin W/ Minerals 1 TAB PO SCH (10:14)
--- NOTE | 2019-02-08 14:40 | DIS ---
DATE OF ADMISSION: 01/24/2019 DATE OF DISCHARGE: 02/08/2019 DIAGNOSES AT THE TIME OF ADMISSION: 1. Acute respiratory failure with hypoxia. 2. Pulmonary embolism. 3. Femoral deep venous thrombosis. 4. Encephalopathy, acute. 5. Upper gastrointestinal bleeding. 6. Liver cirrhosis. 7. Alcohol abuse. 8. Urinary tract infection. FINAL DIAGNOSES: 1. Clear cell renal cell carcinoma of the right kidney with metastasis. 2. Pancreatic mass concerning for malignancy with liver metastasis. 3. Innumerable hepatic metastatic disease. 4. Osseous metastatic disease of the pelvis. 5. Upper gastrointestinal bleeding from erosive esophagitis and large ulceration of the distal esophagus and esophagitis. 6. Right femoral vein thrombosis, status post vena cava filter placement. 7. Liver cirrhosis. 8. Pulmonary embolism. 9. Encephalopathy acute, resolved. 10. Hiatal hernia. 11. Status post total shoulder arthroplasty. 12. Alcohol user. 13. Hypertension. CONSULTANTS: 1. Surgery, Milena Man PA-C. 2. Scott Sparrow MD, GI Service. 3. Ricco Bhat MD, Pulmonary/Critical Care. 4. Giorgio Matute MD, Urology Service. 5. Morgan Garza MD, Cardiothoracic Surgery. 6. Kishore Raymond MD for Gastrointestinal Service. 7. Zoie Arciniega MD and Lisa Graves NP for Allergy Service. PROCEDURES: Esophagogastroscopy for upper gastrointestinal bleeding done by Dr. Sparrow with results; 1. Incomplete exam due to thick food material coating in the esophageal mucosa and the mucosa lesions not being appreciated. 2. Stomach empty of any fresh blood or any old blood. The test was repeated the next day on the January 25, which showed; 1. Erosive esophagitis, large ulceration over the distal esophagus and esophagitis. 2. Markedly edematous, erythematous distal esophagus. 3. Hiatal hernia. 4. Normal stomach with hyperemic mucosa and edema. HOSPITAL COURSE: The patient was a 73-year-old White male, who was brought by EMS after being found down due to altered mental status. Apparently, he had some hallucinations and was more agitated for the last couple of days prior to this hospitalization. He was found down with vomit on the face, not in respiratory distress. He was recently discharge for left shoulder surgery. In the Emergency department, initial Paola Coma Score was 14. He was hypoxic at 85% on room air and started on nonrebreather mask. Imaging showed small subsegmental PE in the right upper lobe and head imaging showed posterior fossa with artifact versus acute bleed. He was started on octreotide drip and Protonix due to history of chronic alcohol abuse and liver cirrhosis and possibility that he had an esophageal varices. He received 1 g of Rocephin. GI and Neurosurgery were consulted. Repeated CT of the head did not show a density, which was seen in posterior fossa on the first CT, but he had small tiny left-sided subdural hematoma along the parietal aspect. There was very small and no mass-effect or midline shift. Neurosurgery recommended no intervention for the subdural and he did not need any followup with Neurosurgery. The patient had NG-tube down placed and yield a small amount of dark blood, but no lilo blood. The vital signs were stable and was not oriented to time, place, or person. He was combative and confused. No prior history of any GI bleeding. Blood count was stable. Anemia was essentially mild and he had normal stool. He was continued on IV Protonix with serial H and H's and he had EGD attempted on the , which was nondiagnostic and it was re-done the next day on the January 25 and it showed erosive esophagitis with a large ulceration over the distal esophagus and esophagitis, very erythematous distal esophagus. Ultrasound Doppler of the lower extremities showed femoral thrombosis on the right side with pulmonary emboli and Cardiothoracic Surgery was consulted to place the inferior vena cava filter. Evidently because of accumulation of ascites, he had a paracentesis done 4 L of fluids was removed and followup CAT scan of the abdomen showed a right kidney tumor, lot of metastasis to the pelvis and pancreatic mass suspicious for malignancy too with a lot of metastasis to the liver. Subsequently, the patient was transferred out to the telemetry floor and Oncology was consulted after he had a biopsy done of the right kidney mass, which showed clear cell renal cell carcinoma. Oncology had discussion with the patient and the final decision was made about transferring him to nursing home facility for some PT since he showed a lot of deconditioning and later on, he will make decision whether he will be on hospice or not. Also, his CA-19-9 came back at 81,000, which is very elevated and very likely pancreatic mass versus pancreatic carcinoma. DISPOSITION: He is discharged to [facility] nursing home facility. DIET: At the time of discharge, we recommend him to stay on heart healthy diet. ACTIVITIES: As tolerated. DISCHARGE MEDICATIONS: His medications at the time of discharge; 1. Spironolactone 100 mg once a day. 2. Thiamine 100 mg once a day. 3. Atenolol 50 mg twice a day. 4. Flomax 0.4 mg once a day. 5. Tramadol 50 mg q.4 hours p.r.n. as needed. 6. Lasix 40 mg once a day. 7. Aspirin 81 mg once a day. 8. Tylenol 650 mg q.6 hours p.r.n. as needed. TIME SPENT: Discharge time is more than 30 minutes. The patient was seen and examined before he is discharged. Job ID: [id number]
== END 2019-02-08 16:01 | DRG 166 ==
LOC: ERS 23:09 → IMCU/EMU 01-24 03:06 → 2NO 01-29 16:45 → ONC 02-05 17:57
PROVIDERS: ADMIT Family Medicine; ATTEND Family Medicine
PROC: 0D9670Z Drainage of Stomach with Drainage Device, Via Natural or Artificial Opening (ICD-10-PCS; 2019-01-24)
PROC: 0DJ08ZZ Inspection of Upper Intestinal Tract, Via Natural or Artificial Opening Endoscopic (ICD-10-PCS; 2019-01-24)
PROC: 0DJ08ZZ Inspection of Upper Intestinal Tract, Via Natural or Artificial Opening Endoscopic (ICD-10-PCS; 2019-01-25)
PROC: 06H03DZ Insertion of Intraluminal Device into Inferior Vena Cava, Percutaneous Approach (ICD-10-PCS; 2019-01-26)
PROC: B5191ZZ Fluoroscopy of Inferior Vena Cava using Low Osmolar Contrast (ICD-10-PCS; 2019-01-26)
PROC: 0W9G3ZX Drainage of Peritoneal Cavity, Percutaneous Approach, Diagnostic (ICD-10-PCS; principal; 2019-01-28)
PROC: 0TB03ZX Excision of Right Kidney, Percutaneous Approach, Diagnostic (ICD-10-PCS; 2019-02-01)
DX: J96.01 Acute respiratory failure with hypoxia (principal); S06.5X9A Traumatic subdural hemorrhage with loss of consciousness of unspecified duration, initial encounter; I26.99 Other pulmonary embolism without acute cor pulmonale; K22.11 Ulcer of esophagus with bleeding; R18.8 Other ascites; G93.40 Encephalopathy, unspecified; N39.0 Urinary tract infection, site not specified; I82.411 Acute embolism and thrombosis of right femoral vein; C64.1 Malignant neoplasm of right kidney, except renal pelvis; C78.1 Secondary malignant neoplasm of mediastinum; F17.210 Nicotine dependence, cigarettes, uncomplicated; F10.10 Alcohol abuse, uncomplicated; K74.60 Unspecified cirrhosis of liver; D72.829 Elevated white blood cell count, unspecified; R16.0 Hepatomegaly, not elsewhere classified; Z96.619 Presence of unspecified artificial shoulder joint; W19.XXXA Unspecified fall, initial encounter; Y92.9 Unspecified place or not applicable; R33.8 Other retention of urine; I11.0 Hypertensive heart disease with heart failure; D53.9 Nutritional anemia, unspecified; F32.9 Major depressive disorder, single episode, unspecified; N40.1 Benign prostatic hyperplasia with lower urinary tract symptoms; K44.9 Diaphragmatic hernia without obstruction or gangrene; Z88.0 Allergy status to penicillin; Z79.82 Long term (current) use of aspirin; Z89.611 Acquired absence of right leg above knee
CPT/HCPCS: 36415; 36416; 49083; 50200; 70450; 71045; 71275; 72125; 74177; 75825; 76705; 76942; 77012; 80048; 80053; 80306; 80307; 81003; 81015; 82042; 82105; 82140; 82728; 82805; 83516; 83540; 83550; 83605; 83615; 83690; 83735; 83880; 84100; 84145; 84157; 84443; 84484; 85007; 85025; 85027; 85060; 85379; 85610; 85730; 86038; 86225; 86301; 86704; 86705; 86706; 86707; 86803; 86850; 86900; 86901; 87040; 87070; 87086; 87205; 87340; 87350; 87521; 88305; 88333; 88334; 89051; 93005; 93970; 94640; 96361; 96365; 96375; 96376; 99152; C1725; C1769; C9113; J0690; J0696; J1200; J1644; J1650; J1956; J2001; J2250; J2310; J2354; J2405; J2704; J2920; J2930; J3010; J7050; J7620; P9047; Q9966; Q9967; S0028